=== PATIENT | female | born 1965 | race Caucasian/White ===

== ENCOUNTER 2017-01-26 08:45 | Emergency (ER) | payer MEDICAID, OTHER ==
[~2017-01-26] VITALS: Ht 160 cm; Wt 63.5 kg
[~2017-01-26 08:45] MED LIST: ALBU18; IBUPROFEN PRN
[2017-01-26 09:26] LABS: Urine RBC None Seen /hpf (0 - 4)
[2017-01-26 09:27] LABS: Urine Bilirubin Negative (Negative); Urine Blood Negative /uL (Negative); Urine Color Yellow (Yellow); Urine Glucose Normal (Normal); Urine Ketone TRACE (Negative); Urine Nitrite Negative (Negative); Urine Squamous Epithelial Cell FEW /hpf (<5); Urine Urobilinogen Normal (Negative)
[2017-01-26 09:35] LABS: Basophils # (auto) 0.1 uL; Basophils % (auto) 0.7 % (0.0-2.0); CONDITION Y; DEFINITIVE SEE PRINTOUT; Eosinophils # (auto) 0.1 uL; Eosinophils % (auto) 1.1 % (0.0-7.0); Hematocrit 51.4 % (36.0-46.0); Hemoglobin 17.5 g/dL (12.2-16.2); Lymphocytes # (auto) 2.4 uL; Lymphocytes % (auto) 24.7 % (10.0-50.0); Mean Corpuscular Volume 91.3 fL (80.0-100.0); Mean Platelet Volume 7.6 fL (7.4-10.4); Monocytes % (auto) 9.8 % (0.0-12.0); Neutrophils # (auto) 6.2 uL; Neutrophils % (auto) 63.7 % (37.0-80.0); Platelet Count (auto) 392 10^3/uL (140-450); Red Cell Distribution Width 19.5 % (11.6-16.0); White Blood Cell 9.7 10^3/uL (4.4-10.8)
[2017-01-26 10:02] LABS: Albumin 4.2 g/dL (3.4-5.0); Bilirubin, Total 0.5 mg/dL (0.2-1.0); Calcium 9.2 mg/dL (8.5-10.1)
[2017-01-26] MEDS ORDERED: LORazepam 0.5 MG TAB PO ONE (13:30)
[2017-01-26] MEDS ORDERED: POTASSIUM CHL 20 Meq TABLET PO ONE (13:30)
[2017-01-26] MEDS ORDERED: IPRATROPIUM BROM 0.5 MG/2.5ML INH SOL HHN ONE (14:30)
[2017-01-26] MEDS ORDERED: ALBUTEROL SULF 2.5 MG/0.5ML(0.5%) NEB SOLN HHN ONE (14:30)
[2017-01-26 15:30] VITALS: BP 141/80
== END 2017-01-26 16:17 | disposition home or self-care (01) ==
LOC: EDBD 08:45 → ER 08:45
DX: F41.9 Anxiety disorder, unspecified (principal); J44.9 Chronic obstructive pulmonary disease, unspecified; E87.6 Hypokalemia; I10 Essential (primary) hypertension; F17.210 Nicotine dependence, cigarettes, uncomplicated; F12.10 Cannabis abuse, uncomplicated; H40.9 Unspecified glaucoma
CPT/HCPCS: 36415; 71020; 80053; 80307; 81001; 84484; 85025; 93005; 94640

== ENCOUNTER 2017-09-22 20:39 | Inpatient (IN) | payer MEDICAID ==
[~2017-09-22] VITALS: Ht 162.6 cm; Wt 70.5 kg
[2017-09-22] MEDS ORDERED: IPRATROPIUM BROM 0.5 MG/2.5ML INH SOL NEB ONE (21:00)
[2017-09-22] MEDS ORDERED: methylPREDNISolone SOD SUCC 125 MG/2 ML VL IV ONE (21:00)
[2017-09-22] MEDS ORDERED: ALBUTEROL SULF 2.5 MG/0.5ML(0.5%) NEB SOLN NEB ONE (21:00)
[2017-09-22 21:18] LABS: Urine Bacteria NONE SEEN /hpf (None Seen); Urine Blood TRACE /uL (Negative); Urine Mucus FEW (None Seen); Urine Specific Gravity 1.006 (1.001-1.035); Urine WBC 1 /hpf (0 - 5)
[2017-09-22 21:19] LABS: Basophils # (auto) 0.1 uL; Basophils % (auto) 1.3 % (0.0-2.0); Eosinophils # (auto) 0 uL; Eosinophils % (auto) 0.1 % (0.0-7.0); Hematocrit 46.8 % (36.0-46.0); Hemoglobin 15.8 g/dL (12.2-16.2); Lymphocytes # (auto) 0.6 uL; Lymphocytes % (auto) 8.4 % (10.0-50.0); Mean Corpuscular Hemoglobin 33.4 pg (28.0-32.0); Mean Corpuscular Hgb Conc. 33.7 g/dL (32.0-36.0); Mean Corpuscular Volume 99.2 fL (80.0-100.0); Monocytes # (auto) 1.3 uL; Monocytes % (auto) 17.5 % (0.0-12.0); Neutrophils # (auto) 5.3 uL; Neutrophils % (auto) 72.7 % (37.0-80.0); Platelet Count (auto) 274 10^3/uL (140-450); Red Blood Cells 4.72 10^6/uL (4.0-5.20); Red Cell Distribution Width 14.2 % (11.8-14.3); White Blood Cell 7.2 10^3/uL (4.4-10.8)
[2017-09-22 21:38] LABS: Alanine Aminotransferase 15 U/L (13-56); Alkaline Phosphatase 84 U/L (45-117); Anion Gap 7 (5-15); Aspartate Aminotransferase 19 U/L (15-37); BUN/Creatinine Ratio 9.1; Bilirubin, Total 0.4 mg/dL (0.2-1.0); Blood Urea Nitrogen 6 mg/dL (7-18); Calcium 8.4 mg/dL (8.5-10.1); Carbon Dioxide 29 mmol/L (21-32); Chloride 100 mmol/L (98-107); GFR African American 121 mL/min; GFR Non-African American 100 mL/min; Glucose 122 mg/dL (74-106); Magnesium 2.1 mg/dL (1.6-2.6); Potassium 3.6 mmol/L (3.5-5.1); Sodium 136 mmol/L (136-145)
[2017-09-22] MEDS ORDERED: SODIUM CHLORIDE 0.9% 1,000 ML IV ONE (21:45)
[2017-09-22] MEDS ORDERED: DOXYCYCLINE HYC 100MG/250ML 250 ML IV ONE ×2 (22:30)
[2017-09-23] MEDS ORDERED: NITROGLYCERIN 0.4 MG SL TAB SL PRN (00:30)
[2017-09-23] MEDS ORDERED: ONDANSETRON HCL 4 MG/2 ML VIAL IV PRN (00:30)
[2017-09-23] MEDS ORDERED: ACETAMINOPHEN 325 MG TAB PO PRN (00:30)
[2017-09-23] MEDS ORDERED: MORPHINE SULFATE 4 MG/ML SYR/VIAL IV PRN (00:30)
[2017-09-23] MEDS ORDERED: DOCUSATE SOD 100 MG CAP PO PRN (00:30)
[2017-09-23 01:51] VITALS: BP 118/76
[2017-09-23] MEDS: GABAPENTIN 300 MG CAP PO SCH ×3 (06:00→22:37)
[2017-09-23] MEDS: LEVOFLOXACIN 500MG 100 ML IV SCH (09:17)
[2017-09-23] MEDS: methylPREDNISolone SOD SUCC 125 MG/2 ML VL IV SCH ×2 (09:18→22:37)
[2017-09-23] MEDS: ENOXAPARIN SOD 40 MG/0.4 ML SYRINGE SC SCH (09:20)
[2017-09-23] MEDS: FAMOTIDINE 20 MG TAB PO SCH ×2 (09:20→22:37)
[2017-09-23] MEDS: amLODIPine BESYLATE 5 MG TAB PO SCH (09:20)
[2017-09-23] MEDS: guaiFENesin-DM 100/10mg/5ml SYR PO PRN (13:21)
[2017-09-23] MEDS: IPRATROPIUM BROM 0.5 MG/2.5ML INH SOL NEB PRN ×2 (13:30→19:51)
[2017-09-23] MEDS: ALBUTEROL SULF 2.5 MG/0.5ML(0.5%) NEB SOLN NEB PRN ×2 (13:30→19:51)
[2017-09-23] MEDS ORDERED: HYDR50TA15 PO (15:04)
[2017-09-23] MEDS ORDERED: PERCOT PO (15:04)
[2017-09-23] MEDS ORDERED: BACL10TA PO (15:04)
[2017-09-23] MEDS ORDERED: GABA-339 PO (15:04)
[2017-09-23] MEDS ORDERED: LORA-622 PO (15:04)
[2017-09-23] MEDS ORDERED: AMLO5TAB2 PO (15:04)
[2017-09-23] MEDS ORDERED: TIMO0.5S3 EACHEYE (15:04)
[2017-09-23 15:33] VITALS: BP 111/69
[2017-09-23] MEDS: BUDESONIDE (INHALATION) 0.5 MG/2 ML NEB NEB SCH (19:51)
[2017-09-23 22:00] VITALS: BP 105/68
[2017-09-24] MEDS: guaiFENesin-DM 100/10mg/5ml SYR PO PRN ×5 (02:57→22:32)
[2017-09-24] MEDS: HYDROcodone-ACET 7.5/325MG TAB PO PRN ×3 (03:36→17:30)
[2017-09-24 05:00] VITALS: BP 129/77
[2017-09-24 05:37] LABS: Basophils # (auto) 0 uL; Basophils % (auto) 0.1 % (0.0-2.0); Eosinophils # (auto) 0 uL; Hematocrit 42.7 % (36.0-46.0); Hemoglobin 14.5 g/dL (12.2-16.2); Lymphocytes # (auto) 0.5 uL; Lymphocytes % (auto) 6.6 % (10.0-50.0); Mean Corpuscular Hemoglobin 33.9 pg (28.0-32.0); Mean Corpuscular Volume 99.8 fL (80.0-100.0); Monocytes # (auto) 0.6 uL; Monocytes % (auto) 6.8 % (0.0-12.0); Neutrophils % (auto) 86.5 % (37.0-80.0); Platelet Count (auto) 287 10^3/uL (140-450); Red Blood Cells 4.28 10^6/uL (4.0-5.20); Red Cell Distribution Width 14.4 % (11.8-14.3); White Blood Cell 8.1 10^3/uL (4.4-10.8)
[2017-09-24 05:54] LABS: BUN/Creatinine Ratio 22.2; Calcium 8.6 mg/dL (8.5-10.1); Potassium 3.7 mmol/L (3.5-5.1)
[2017-09-24 05:57] LABS: Albumin 2.7 g/dL (3.4-5.0); Bilirubin, Total 0.4 mg/dL (0.2-1.0); Total Protein 6.3 g/dL (6.4-8.2)
[2017-09-24] MEDS: GABAPENTIN 300 MG CAP PO SCH ×3 (06:51→21:43)
[2017-09-24 08:00] VITALS: BP 129/77
[2017-09-24] MEDS: FAMOTIDINE 20 MG TAB PO SCH ×2 (09:07→21:43)
[2017-09-24] MEDS: amLODIPine BESYLATE 5 MG TAB PO SCH (09:07)
[2017-09-24] MEDS: ENOXAPARIN SOD 40 MG/0.4 ML SYRINGE SC SCH (09:07)
[2017-09-24] MEDS: methylPREDNISolone SOD SUCC 125 MG/2 ML VL IV SCH ×2 (09:08→21:42)
[2017-09-24] MEDS: LEVOFLOXACIN 500MG 100 ML IV SCH (09:08)
[2017-09-24] MEDS: BUDESONIDE (INHALATION) 0.5 MG/2 ML NEB NEB SCH ×2 (10:00→22:35)
[2017-09-24 12:00] VITALS: BP 158/90
[2017-09-24] MEDS: ALBUTEROL SULF 2.5 MG/0.5ML(0.5%) NEB SOLN NEB SCH ×2 (14:50→19:41)
[2017-09-24] MEDS: IPRATROPIUM BROM 0.5 MG/2.5ML INH SOL NEB PRN ×2 (14:50→22:36)
[2017-09-24 16:00] VITALS: BP 153/74
[2017-09-24 21:30] VITALS: BP 133/78
[2017-09-25 04:51] VITALS: BP 147/90
[2017-09-25] MEDS: guaiFENesin-DM 100/10mg/5ml SYR PO PRN ×2 (05:58→22:32)
[2017-09-25] MEDS: HYDROcodone-ACET 7.5/325MG TAB PO PRN ×3 (05:58→20:08)
[2017-09-25] MEDS: GABAPENTIN 300 MG CAP PO SCH ×3 (05:58→22:37)
[2017-09-25] MEDS: ALBUTEROL SULF 2.5 MG/0.5ML(0.5%) NEB SOLN NEB SCH ×4 (06:26→18:00)
[2017-09-25] MEDS: BUDESONIDE (INHALATION) 0.5 MG/2 ML NEB NEB SCH ×2 (06:26→18:57)
[2017-09-25 08:00] VITALS: BP 134/79
[2017-09-25] MEDS: ENOXAPARIN SOD 40 MG/0.4 ML SYRINGE SC SCH ×2 (09:48→09:52)
[2017-09-25] MEDS: FAMOTIDINE 20 MG TAB PO SCH ×2 (09:48→22:37)
[2017-09-25] MEDS: methylPREDNISolone SOD SUCC 125 MG/2 ML VL IV SCH ×2 (09:48→22:37)
[2017-09-25] MEDS: amLODIPine BESYLATE 5 MG TAB PO SCH (09:49)
[2017-09-25] MEDS: LEVOFLOXACIN 500MG 100 ML IV SCH (09:49)
[2017-09-25 12:00] VITALS: BP 140/80
[2017-09-25] MEDS: IPRATROPIUM BROM 0.5 MG/2.5ML INH SOL NEB SCH (16:00)
[2017-09-25 16:51] VITALS: BP 149/88
[2017-09-25 21:30] VITALS: BP 150/82
[2017-09-26] VITALS (8 sets, daily range): BP systolic 140–150; BP diastolic 82–90
[2017-09-26] MEDS: ALBUTEROL SULF 2.5 MG/0.5ML(0.5%) NEB SOLN NEB SCH ×4 (06:00→20:12)
[2017-09-26] MEDS: IPRATROPIUM BROM 0.5 MG/2.5ML INH SOL NEB SCH ×4 (06:05→20:12)
[2017-09-26] MEDS: GABAPENTIN 300 MG CAP PO SCH ×3 (06:55→21:03)
[2017-09-26] MEDS: BUDESONIDE (INHALATION) 0.5 MG/2 ML NEB NEB SCH (09:57)
[2017-09-26] MEDS ORDERED: LEVOFLOXACIN 500 MG TAB PO SCH (10:00)
[2017-09-26] MEDS: ENOXAPARIN SOD 40 MG/0.4 ML SYRINGE SC SCH (10:00)
[2017-09-26] MEDS: guaiFENesin-DM 100/10mg/5ml SYR PO PRN (10:14)
[2017-09-26] MEDS: FAMOTIDINE 20 MG TAB PO SCH ×2 (10:14→21:02)
[2017-09-26] MEDS: methylPREDNISolone SOD SUCC 125 MG/2 ML VL IV SCH ×2 (10:14→17:39)
[2017-09-26] MEDS: HYDROcodone-ACET 7.5/325MG TAB PO PRN ×2 (10:14→19:55)
[2017-09-26] MEDS ORDERED: LEVOFLOXACIN 500MG 100 ML IV SCH (10:15)
[2017-09-26] MEDS: amLODIPine BESYLATE 5 MG TAB PO SCH (10:15)
[2017-09-26] MEDS: TEMAZEPAM 15 MG CAP PO PRN (21:02)
[2017-09-27] MEDS: methylPREDNISolone SOD SUCC 125 MG/2 ML VL IV SCH ×3 (02:30→18:05)
[2017-09-27 05:00] VITALS: BP 142/81
[2017-09-27] MEDS: GABAPENTIN 300 MG CAP PO SCH ×3 (06:41→21:19)
[2017-09-27] MEDS: BUDESONIDE (INHALATION) 0.5 MG/2 ML NEB NEB SCH ×2 (06:57→18:28)
[2017-09-27] MEDS: ALBUTEROL SULF 2.5 MG/0.5ML(0.5%) NEB SOLN NEB SCH ×4 (06:57→18:28)
[2017-09-27] MEDS: IPRATROPIUM BROM 0.5 MG/2.5ML INH SOL NEB SCH ×4 (06:57→18:28)
[2017-09-27 06:59] LABS: Basophils # (auto) 0 uL; Basophils % (auto) 0.1 % (0.0-2.0); Eosinophils # (auto) 0 uL; Hemoglobin 15.8 g/dL (12.2-16.2); Lymphocytes % (auto) 10.1 % (10.0-50.0); Mean Corpuscular Hemoglobin 33.1 pg (28.0-32.0); Mean Corpuscular Hgb Conc. 33.6 g/dL (32.0-36.0); Mean Corpuscular Volume 98.7 fL (80.0-100.0); Monocytes # (auto) 0.6 uL; Neutrophils # (auto) 8.5 uL; Neutrophils % (auto) 83.8 % (37.0-80.0); Nucleated Red Blood Cells % 0.3 %; Platelet Count (auto) 360 10^3/uL (140-450); Red Blood Cells 4.76 10^6/uL (4.0-5.20); Red Cell Distribution Width 14.5 % (11.8-14.3); White Blood Cell 10.2 10^3/uL (4.4-10.8)
[2017-09-27 07:14] LABS: Potassium 4.1 mmol/L (3.5-5.1)
[2017-09-27 07:20] LABS: BUN/Creatinine Ratio 18.2; Calcium 8.6 mg/dL (8.5-10.1)
[2017-09-27 09:00] VITALS: BP 155/87
[2017-09-27] MEDS: FAMOTIDINE 20 MG TAB PO SCH ×2 (09:02→21:19)
[2017-09-27] MEDS: LEVOFLOXACIN 500 MG TAB PO SCH (09:02)
[2017-09-27] MEDS: HYDROcodone-ACET 7.5/325MG TAB PO PRN ×2 (09:02→18:06)
[2017-09-27] MEDS: ENOXAPARIN SOD 40 MG/0.4 ML SYRINGE SC SCH (09:03)
[2017-09-27] MEDS: amLODIPine BESYLATE 5 MG TAB PO SCH (09:03)
[2017-09-27] MEDS: guaiFENesin-DM 100/10mg/5ml SYR PO PRN (09:03)
[2017-09-27 13:03] VITALS: BP 142/83
[2017-09-27 17:00] VITALS: BP 137/73
[2017-09-27 20:00] VITALS: BP 125/77
[2017-09-27] MEDS: TEMAZEPAM 15 MG CAP PO PRN (21:19)
[2017-09-27 22:00] VITALS: BP 125/77
[2017-09-28] MEDS: methylPREDNISolone SOD SUCC 125 MG/2 ML VL IV SCH ×2 (02:46→08:18)
[2017-09-28] MEDS: HYDROcodone-ACET 7.5/325MG TAB PO PRN ×2 (05:34→08:19)
[2017-09-28] MEDS: GABAPENTIN 300 MG CAP PO SCH (05:34)
[2017-09-28 05:55] VITALS: BP 151/90
[2017-09-28] MEDS: ALBUTEROL SULF 2.5 MG/0.5ML(0.5%) NEB SOLN NEB SCH ×2 (06:11→09:37)
[2017-09-28] MEDS: IPRATROPIUM BROM 0.5 MG/2.5ML INH SOL NEB SCH ×2 (06:11→09:36)
[2017-09-28] MEDS: LEVOFLOXACIN 500 MG TAB PO SCH (08:18)
[2017-09-28] MEDS: FAMOTIDINE 20 MG TAB PO SCH (08:18)
[2017-09-28] MEDS: amLODIPine BESYLATE 5 MG TAB PO SCH (08:19)
[2017-09-28] MEDS: ENOXAPARIN SOD 40 MG/0.4 ML SYRINGE SC SCH (08:20)
[2017-09-28 09:07] VITALS: BP 127/77
[2017-09-28] MEDS: BUDESONIDE (INHALATION) 0.5 MG/2 ML NEB NEB SCH (09:37)
== END 2017-09-28 12:05 | disposition home or self-care (01) | DRG 133 ==
LOC: EDBD 20:39 → ER 20:51 → TELE 20:52 → TELE-WESTW 09-23 14:19 → WEST WING 09-26 10:19
PROVIDERS: ADMIT Nurse Practitioner; ATTEND Internal Medicine
PROC: 5A09357 Assistance with Respiratory Ventilation, Less than 24 Consecutive Hours, Continuous Positive Airway Pressure (ICD-10-PCS; principal; 2017-09-22)
PROC: 5A09357 Assistance with Respiratory Ventilation, Less than 24 Consecutive Hours, Continuous Positive Airway Pressure (ICD-10-PCS; 2017-09-23)
DX: J96.21 Acute and chronic respiratory failure with hypoxia (principal); J18.9 Pneumonia, unspecified organism; Z99.81 Dependence on supplemental oxygen; J44.0 Chronic obstructive pulmonary disease with (acute) lower respiratory infection; E44.1 Mild protein-calorie malnutrition; J44.1 Chronic obstructive pulmonary disease with (acute) exacerbation; J20.9 Acute bronchitis, unspecified; I10 Essential (primary) hypertension; E74.39 Other disorders of intestinal carbohydrate absorption; F12.90 Cannabis use, unspecified, uncomplicated; F17.210 Nicotine dependence, cigarettes, uncomplicated; J96.22 Acute and chronic respiratory failure with hypercapnia; T38.0X5A Adverse effect of glucocorticoids and synthetic analogues, initial encounter; F32.9 Major depressive disorder, single episode, unspecified; F41.9 Anxiety disorder, unspecified; R73.9 Hyperglycemia, unspecified; Z88.0 Allergy status to penicillin; Z82.49 Family history of ischemic heart disease and other diseases of the circulatory system; Z88.5 Allergy status to narcotic agent
CPT/HCPCS: 36415; 36600; 71045; 71046; 80048; 80053; 81001; 82805; 82962; 83036; 83605; 83735; 83880; 84484; 85025; 87040; 87070; 87205; 87804; 93005; 94640; 94644; 94660; 96361; 96365; 96367; 99291; J1956; J3490

== ENCOUNTER 2020-03-26 12:22 | Inpatient (IN) | payer MEDICAID ==
[~2020-03-26] VITALS: Ht 162.6 cm; Wt 62.0 kg
[2020-03-26] VITALS (22 sets, daily range): BP systolic 92–149; BP diastolic 50–97
[~2020-03-26 12:22] MED LIST changes: +AMLO5TAB15 PO; +BACL10TA PO; +DOXY-338 PO; +GLAT1INJ SC; +HYDR10TA26 PO; -IBUPROFEN PRN; +LACO100T PO; +LORA-622 PO; +OXCA600T40 OR; +PRED-559 PO; +TIMO0.5S66 EACHEYE
[2020-03-26] MEDS ORDERED: NALOXONE HCL 1MG/ML 2ML SYRINGE ONE (12:54)
[2020-03-26 12:58] LABS: Basophils # (auto) 0.1 10 ^3/uL (0-0.2); Basophils % (auto) 1.2 % (0.0-2.0); Eosinophils # (auto) 0.1 10 ^3/uL (0-0.8); Eosinophils % (auto) 2.5 % (0.0-7.0); Hematocrit 47.9 % (36.0-46.0); Hemoglobin 15.8 g/dL (12.2-16.2); Lymphocytes # (auto) 1.2 10 ^3/uL (0.4-5.4); Lymphocytes % (auto) 22.8 % (10.0-50.0); Mean Corpuscular Hemoglobin 30.7 pg (28.0-32.0); Mean Corpuscular Volume 93.2 fL (80.0-100.0); Monocytes # (auto) 0.8 10 ^3/uL (0-1.3); Monocytes % (auto) 14.7 % (0.0-12.0); Neutrophils # (auto) 3.2 10 ^3/uL (1.6-8.6); Neutrophils % (auto) 58.8 % (37.0-80.0); Platelet Count (auto) 333 10^3/uL (140-450); Red Blood Cells 5.14 10^6/uL (4.0-5.20); Red Cell Distribution Width 16.5 % (11.8-14.3); White Blood Cell 5.4 10^3/uL (4.4-10.8)
[2020-03-26] MEDS ORDERED: NALOXONE HCL 0.4 MG/ML VIAL IV ONE (13:00)
[2020-03-26 13:09] LABS: Alanine Aminotransferase 27 U/L (13-56); Albumin 3.2 g/dL (3.4-5.0); Anion Gap 5 (5-15); Blood Alcohol < 3.0 mg/dL (0-5); Blood Urea Nitrogen 9 mg/dL (7-18); Calcium 8.7 mg/dL (8.5-10.1); Carbon Dioxide 30 mmol/L (21-32); Chloride 94 mmol/L (98-107); Glucose 97 mg/dL (74-106); Potassium 3.7 mmol/L (3.5-5.1); Sodium 129 mmol/L (136-145)
[2020-03-26 13:10] LABS: Acetaminophen < 2.0 ug/mL (10-30); Salicylate 8.9 mg/dL (2.8-20.0)
[2020-03-26 13:12] LABS: Alkaline Phosphatase 57 U/L (45-117); Aspartate Aminotransferase 37 U/L (15-37); BUN/Creatinine Ratio 16.4; Bilirubin, Total 0.5 mg/dL (0.2-1.0); GFR African American 148 mL/min; GFR Non-African American 122 mL/min
[2020-03-26] MEDS ORDERED: MIDAZOLAM HCL 5 MG/ML-1ML VIAL IV ONE (13:15)
[2020-03-26] MEDS ORDERED: MIDAZOLAM DRIP 50 mg/50mL 50 ML IV SCH (13:28)
[2020-03-26] MEDS ORDERED: MIDAZOLAM DRIP 50 mg/50mL 50 ML IV ONE (13:30)
[2020-03-26] MEDS ORDERED: BACL20TA PO (13:35)
[2020-03-26] MEDS ORDERED: GABA-339 PO (13:35)
[2020-03-26] MEDS ORDERED: MULT-927 PO (13:35)
[2020-03-26] MEDS ORDERED: fentaNYL Drip 2500mCg/250mlNS 250 ML IV SCH (13:35)
[2020-03-26] MEDS ORDERED: fentaNYL Drip 2500mCg/250mlNS 250 ML IV ONE (13:37)
[2020-03-26] MEDS ORDERED: ALBUAER3 IN (13:37)
[2020-03-26] MEDS ORDERED: ASPI-498 PO ×2 (13:37→13:59)
[2020-03-26] MEDS ORDERED: LISI40TA11 PO (13:38)
[2020-03-26] MEDS ORDERED: MIRT1TAB38 PO (13:38)
[2020-03-26] MEDS ORDERED: MONT10TA34 PO (13:40)
[2020-03-26] MEDS ORDERED: ZINC50TA7 PO (13:40)
[2020-03-26] MEDS ORDERED: ATOR40TA52 PO (13:41)
[2020-03-26] MEDS ORDERED: CHOL1000 PO (13:41)
[2020-03-26] MEDS ORDERED: ASCO100076 PO (13:42)
[2020-03-26] MEDS: MIDAZOLAM DRIP 50 mg/50mL 50 ML IV SCH (13:45)
[2020-03-26] MEDS ORDERED: BRIV1TAB4 PO (13:47)
[2020-03-26] MEDS ORDERED: LACO150T PO (13:47)
[2020-03-26] MEDS ORDERED: HYDR25TA4 PO (13:47)
[2020-03-26] MEDS ORDERED: IBUP800T24 PO (13:50)
[2020-03-26] MEDS ORDERED: HYDR-4298 PO (13:51)
[2020-03-26] MEDS ORDERED: ACYC-166 PO (13:53)
[2020-03-26] MEDS ORDERED: BECL40AE11 IN (13:56)
[2020-03-26] MEDS ORDERED: NOREPINEPHRINE 8 MG/250ML KIT 250 ML IV ONE (14:04)
[2020-03-26] MEDS: fentaNYL Drip 2500mCg/250mlNS 250 ML IV SCH (14:12)
[2020-03-26] MEDS: NOREPINEPHRINE 8 MG/250ML KIT 250 ML IV SCH (14:15)
[2020-03-26] MEDS ORDERED: IPRATROPIUM BROM 0.5 MG/2.5ML INH SOL ONE (14:37)
[2020-03-26] MEDS ORDERED: ALBUTEROL SULF 2.5 MG/0.5ML(0.5%) NEB SOLN ONE (14:37)
--- NOTE | 2020-03-26 15:18 | NUR ---
RT Transport Note: Patient transported to CT with ELIZABETH Parsons and radiology team. Patient transported on front desk monitor with alarms set and audible, ambu-bag/mask connected to 02 tank. Patient returned to room with no adverse reaction noted. Transport completed without incident.
[2020-03-26 15:19] LABS: Magnesium 2.2 mg/dL (1.6-2.6)
[2020-03-26] MEDS ORDERED: ALBUTEROL SULF 2.5 MG/0.5ML(0.5%) NEB SOLN NEB ONE (15:45)
[2020-03-26] MEDS ORDERED: IPRATROPIUM BROM 0.5 MG/2.5ML INH SOL NEB ONE (15:45)
[2020-03-26] MEDS ORDERED: MORPHINE SULF INJ 2 MG/ML SYRINGE 1ML IV PRN (17:15)
[2020-03-26] MEDS ORDERED: NITROGLYCERIN 0.4 MG SL TAB SL PRN (17:15)
[2020-03-26] MEDS ORDERED: D5W/LACTATED RINGERS 1,000 ML IV ONE (17:15)
[2020-03-26] MEDS ORDERED: ONDANSETRON HCL 4 MG/2 ML VIAL IV PRN (17:15)
[2020-03-26] MEDS ORDERED: LIDOCAINE 1% (LOCAL ANESTH.) PF 5ml SDV ID ONE (18:45)
--- NOTE | 2020-03-26 18:59 | NUR ---
PICC line placement Patients family educated on need for PICC line placement. All risks and benefits explained and all questions and concerns addressed prior to procedure. Noted past medical history and allergies with no contraindications. INR and Plt counts within acceptable range. 5 fr PICC line inserted via right brachial vein using [employer] US and Tip Location System. Sterile technique with maximum barrier precautions utilized. Blood return obtained from each of three lumens and each flushed easily with NS using proper technique. PICC secured with Stat-lock; biodisc and occlusive dressing applied. Stat portable chest x-ray obtained for PICC tip placement. *Baseline Arm Circumference 27cm, internal length 32cm, external length 0cm PICC lot #[id number]
--- NOTE | 2020-03-26 19:10 | NUR ---
OK to use PICC line Xray completed. OK to use PICC line . PRIMARY RN NOTIFIED
--- NOTE | 2020-03-26 19:30 | NUR ---
REPORT RECEIVED, ASSUMED CARE.
--- NOTE | 2020-03-26 19:50 | NUR ---
ONLINE RADIOLOGY (MICHAEL) CALLED ET AND PICC LINE IN PLACE. NGT NEEDS TO BE ADVANCED.
--- NOTE | 2020-03-26 20:05 | NUR ---
ADVANCED NGT PER CXR REPORT.
[2020-03-26 20:35] LABS: INR 1.05 (0.9-1.15); Partial Thromboplastin Time 31.9 sec (23.0-31.2)
--- NOTE | 2020-03-26 21:50 | NUR ---
MARIPOSA CALLED GAVE UPDATE, EXPLAINED POC AND ADDRESSED ALL QUESTIONS AND CONCERNS. EXPLAINED HAS HOME MEDICATIONS THAT NEED TO GO BACK HOME. UNABLE TO COME IN TONIGHT. RESPONDED WITH UNDERSTANDING AND COMPLIANCE, WILL PASS ON IN REPORT.
--- NOTE | 2020-03-26 22:05 | NUR ---
PT AWOKEN THRASHING GRABBING AT LINES AND TUBES UNABLE TO REORIENT PT, HAD TO INCREASE SEDATION.
[2020-03-26] MEDS: FAMOTIDINE (10MG/ML) 2ML VL IV SCH (22:31)
[2020-03-26] MEDS: SODIUM CHLOR 0.9% PF (SALINE LOCK) 10ML VIAL/SYR IV SCH (22:31)
[2020-03-27] VITALS (96 sets, daily range): BP systolic 87–142; BP diastolic 46–80
[2020-03-27] MEDS: MIDAZOLAM DRIP 50 mg/50mL 50 ML IV SCH ×4 (02:00→23:25)
--- NOTE | 2020-03-27 02:00 | NUR ---
PT AWOKEN THRASHING GRABBING AT LINES AND TUBES UNABLE TO REORIENT PT, HAD TO RESTART VERSED GTT SEDATION FOR PT SAFETY.
--- NOTE | 2020-03-27 06:15 | NUR ---
PT AWOKEN THRASHING GRABBING AT LINES AND TUBES UNABLE TO REORIENT PT.
--- NOTE | 2020-03-27 06:25 | NUR ---
RT NOTE: PT. TRANSFERRED TO ICU 102 WITH ELIZABETH ASHLEY AND BIOMASS TECHNICIAN WITHOUT INCIDENT. PT. ON [employer] BAND TEACHER AND BAGGED WITH 15L O2. PT. PLACED BACK ON VENT # [phone], WITH ORDERED SETTINGS.
--- NOTE | 2020-03-27 06:30 | NUR ---
PATIENT ARRIVED VIA GURNEY WITH X1 RN, X1 ADAPTED PHYSICAL EDUCATION AIDE, AND ER RT; PLACED PT. ON BEDSIDE MONITOR; SEE INTERVENTIONS FOR ASSESSMENT; VS STABLE AT THIS TIME- WITH PATIENT ON LEVOPHED GTT AT 4MCG/MIN; PT. ON SEDATION/INTUBATED/VENTED; WILL CONT. TO MONITOR.
--- NOTE | 2020-03-27 07:55 | NUR ---
Dr. Hager at the bedside, seen and eval patient at this time.
[2020-03-27 09:44] LABS: Basophils # (auto) 0.1 10 ^3/uL (0-0.2); Basophils % (auto) 0.7 % (0.0-2.0); Eosinophils # (auto) 0 10 ^3/uL (0-0.8); Eosinophils % (auto) 0.5 % (0.0-7.0); Hematocrit 44.2 % (36.0-46.0); Hemoglobin 14.5 g/dL (12.2-16.2); Lymphocytes # (auto) 1.3 10 ^3/uL (0.4-5.4); Lymphocytes % (auto) 13.5 % (10.0-50.0); Mean Corpuscular Hemoglobin 30.8 pg (28.0-32.0); Mean Corpuscular Hgb Conc. 32.8 g/dL (32.0-36.0); Mean Corpuscular Volume 93.8 fL (80.0-100.0); Monocytes # (auto) 1.3 10 ^3/uL (0-1.3); Monocytes % (auto) 14.2 % (0.0-12.0); Neutrophils # (auto) 6.6 10 ^3/uL (1.6-8.6); Neutrophils % (auto) 71.1 % (37.0-80.0); Platelet Count (auto) 310 10^3/uL (140-450); Red Blood Cells 4.71 10^6/uL (4.0-5.20); White Blood Cell 9.3 10^3/uL (4.4-10.8)
[2020-03-27 09:48] LABS: Urine Bacteria NONE SEEN /hpf (None Seen); Urine Blood TRACE /uL (Negative); Urine Mucus FEW (None Seen); Urine Specific Gravity 1.011 (1.001-1.035); Urine WBC 3 /hpf (0 - 5)
--- NOTE | 2020-03-27 09:50 | NUR ---
Received a call from Dr. Schmitz to increase Peep to 8 as ordered, paged RT made aware. RT at the bedside.
[2020-03-27 09:57] LABS: Albumin 2.7 g/dL (3.4-5.0); BUN/Creatinine Ratio 11.8; Calcium 7.6 mg/dL (8.5-10.1); Potassium 3.1 mmol/L (3.5-5.1)
[2020-03-27 09:59] LABS: Alcohol, Urine < 3.0 mg/dL (0-10); Amphetamine Screen, Urine NEGATIVE (NEGATIVE); Barbiturate Scree,Urine NEGATIVE (NEGATIVE); Benzodiazephine Screen, Urine POSITIVE (NEGATIVE); Cannabinoid Screen, Urine NEGATIVE (NEGATIVE); Cocaine Screen, Urine NEGATIVE (NEGATIVE); Opiate Scree,Urine NEGATIVE (NEGATIVE); Phencyclidine Screen, Urine NEGATIVE (NEGATIVE)
[2020-03-27 10:00] LABS: Bilirubin, Total 0.5 mg/dL (0.2-1.0); Total Protein 5.4 g/dL (6.4-8.2)
[2020-03-27] MEDS ORDERED: VIMPAT 150 MG IV SCH (10:00)
[2020-03-27] MEDS: BRIVIACT 50 MG PO SCH ×2 (10:00→21:40)
[2020-03-27 10:09] LABS: INR 1.1 (0.9-1.15); Partial Thromboplastin Time 32.2 sec (23.0-31.2)
[2020-03-27] MEDS: cefTRIAXone 1GM/50ML D5W 50 ML IV SCH (10:40)
[2020-03-27] MEDS: FAMOTIDINE (10MG/ML) 2ML VL IV SCH ×2 (10:40→21:40)
[2020-03-27] MEDS: SODIUM CHLOR 0.9% PF (SALINE LOCK) 10ML VIAL/SYR IV SCH ×2 (10:40→21:40)
[2020-03-27] MEDS: fentaNYL Drip 2500mCg/250mlNS 250 ML IV SCH ×3 (10:45→23:41)
[2020-03-27] MEDS ORDERED: SODIUM CHL 0.9% IV SCH (11:00)
[2020-03-27] MEDS ORDERED: LACOSAMIDE IV SCH (11:00)
[2020-03-27] MEDS: ALBUTEROL SULF 2.5 MG/0.5ML(0.5%) NEB SOLN NEB SCH ×4 (11:03→21:58)
[2020-03-27] MEDS: IPRATROPIUM BROM 0.5 MG/2.5ML INH SOL NEB SCH ×4 (11:04→21:58)
--- NOTE | 2020-03-27 11:45 | NUR ---
Ice pack provided for increased BT.
[2020-03-27] MEDS: NOREPINEPHRINE 8 MG/250ML KIT 250 ML IV SCH (12:45)
--- NOTE | 2020-03-27 12:45 | NUR ---
Stopped Levophed at this time.
--- NOTE | 2020-03-27 14:53 | NUR ---
EEG COMPLETED AT 11:45.
[2020-03-27] MEDS: ACETAMINOPHEN 650 mg PER 20 mL UD GT PRN (14:57)
--- NOTE | 2020-03-27 15:00 | NUR ---
Tylenol given for BT 100.6 F. NG tube checked for the residual before giving medication, got bile 80 ml and some air left. No N/V noted.
--- NOTE | 2020-03-27 16:30 | NUR ---
BT 100.6 F, on cooling blanket. Patient awake and agitation, suction provided, mouth care provided, still not cooperate with treatment. Increased sedation as ordered. Will continue to monitor and care, notify MD made aware.
--- NOTE | 2020-03-27 17:10 | NUR ---
Dr. Avila at the bedside, seen and examined patient at this time, informed MD about the temperature 100.2-100.6 F, and increased sedation due to agitation and MD agreed, suction provided and got large amount of secretion with creamy color. MD will order ATB, will continue to monitor and care.
--- NOTE | 2020-03-27 20:15 | NUR ---
OPENING NOTE: INTUBATED AND SEDATED. GROSSLY UNRESPONSIVE BUT MUSCLES VERY TENSE AND RESISTIVE TO CARE. PUPILS UNEQUAL L > R, NOTED WITH SCLERAL IRREGULARITIES/DEFORMITIES TO RIGHT. HYPOGAG/COUGH. SINUS TACH, HR 100s. SBP 120-140s. 7.5 ETT 24 AT THE LIP. LS WITH WHEEZES THROUGHOUT. EVEN AND UNLABORED BREATHING. SMALL AMOUNT OF CREAMY ETT SECRETIONS. ABD SOFT. HYPOACTIVE BS. NGT + AIR BOLUS, PLACED TO LIS, LIGHT BILIOUS. UNKNOWN LBM. RODRIGUEZ PATENT AND INTACT, DRAINING LIGHT FLACO URINE. SKIN GROSSLY INTACT, SEE SKIN AND WOUND FLOWSHEET FOR ASSESSMENT. RIGHT UPPER ARM PICC, CDI, AND PATENT WITH BLOOD RETURN. REINFORCED POC. MAINTAINED PATIENT SAFETY: BED LOCKED AND IN THE LOWEST POSITION, FREQUENT VISUAL CHECKS. WILL CONT CARE
--- NOTE | 2020-03-27 21:00 | NUR ---
SEDATION VACATION: UNABLE TO COMPLETE SEDATION VACATION AT THIS TIME. NOTED TO DESATURATE WITH STIMULATION. WILL REASSESS NECESSITY OF SEDATION AND TITRATE APPROPRIATE Addendum: 03/27/20 at 2320 by Jasmine Kwong RN RN Amended: Links added.
--- NOTE | 2020-03-27 21:00 | NUR ---
TEMP REMAINS ELEVATED > 100F DESPITE COOLING BLANKET - PLACED ICE PACKS IN BILATERAL AXILLA, AND BEHIND NECL
[2020-03-28] VITALS (102 sets, daily range): BP systolic 79–139; BP diastolic 41–78
--- NOTE | 2020-03-28 | NUR ---
TEMP BACK DOWN TO NORMAL
[2020-03-28] MEDS: IPRATROPIUM BROM 0.5 MG/2.5ML INH SOL NEB SCH ×6 (01:49→22:02)
[2020-03-28] MEDS: ALBUTEROL SULF 2.5 MG/0.5ML(0.5%) NEB SOLN NEB SCH ×6 (01:49→22:02)
--- NOTE | 2020-03-28 02:00 | NUR ---
BED BATH WITH CHG WIPES, CITLALLI CARE, RODRIGUEZ CARE, ORAL CARE, HAIR CARE, AND PARTIAL LINEN CHANGE COMPLETED
[2020-03-28] MEDS: MIDAZOLAM DRIP 50 mg/50mL 50 ML IV SCH ×5 (02:43→23:46)
--- NOTE | 2020-03-28 04:14 | NUR ---
Respiratory note: TITRATED FIO2 TO 55%, TOLERATING WELL.
--- NOTE | 2020-03-28 04:31 | NUR ---
BP IN 80s, MAP 60 - RESTARTED LEVOPHED GTT
[2020-03-28 04:48] LABS: Basophils # (auto) 0 10 ^3/uL (0-0.2); Basophils % (auto) 0.2 % (0.0-2.0); Eosinophils # (auto) 0 10 ^3/uL (0-0.8); Eosinophils % (auto) 0.2 % (0.0-7.0); Hematocrit 46.3 % (36.0-46.0); Hemoglobin 15.1 g/dL (12.2-16.2); Lymphocytes # (auto) 0.8 10 ^3/uL (0.4-5.4); Mean Corpuscular Hemoglobin 30.8 pg (28.0-32.0); Mean Corpuscular Hgb Conc. 32.7 g/dL (32.0-36.0); Mean Corpuscular Volume 94.2 fL (80.0-100.0); Monocytes # (auto) 0.7 10 ^3/uL (0-1.3); Neutrophils # (auto) 9.8 10 ^3/uL (1.6-8.6); Neutrophils % (auto) 86.6 % (37.0-80.0); Platelet Count (auto) 214 10^3/uL (140-450); Red Blood Cells 4.91 10^6/uL (4.0-5.20); Red Cell Distribution Width 16.6 % (11.8-14.3); White Blood Cell 11.3 10^3/uL (4.4-10.8)
[2020-03-28 05:04] LABS: Potassium 3.5 mmol/L (3.5-5.1)
[2020-03-28 05:12] LABS: Albumin 2.7 g/dL (3.4-5.0); BUN/Creatinine Ratio 37.5; Bilirubin, Total 0.4 mg/dL (0.2-1.0); Total Protein 5.5 g/dL (6.4-8.2)
--- NOTE | 2020-03-28 06:52 | NUR ---
PATIENT'S OWN MEDS TAKEN TO PHARMACY
--- NOTE | 2020-03-28 07:35 | NUR ---
REPORT AND CARE ENDORSED TO ELIZABETH MARTINEZ
--- NOTE | 2020-03-28 08:05 | NUR ---
DR. BORGES Provider/Hospitalist at bedside.
--- NOTE | 2020-03-28 08:15 | NUR ---
TEMP 97.5 RECTALLY. PLACED WARM BLANKETS ON PT. MONITORING TEMP. Addendum: 03/28/20 at 1712 by Monika Rankin RN CORRECTED TIME AT 0900 FOR CHARTING.
[2020-03-28] MEDS: cefTRIAXone 1GM/50ML D5W 50 ML IV SCH (09:02)
[2020-03-28] MEDS ORDERED: [UNRECOGNIZED DRUG - OTHER] PO SCH (10:00)
--- NOTE | 2020-03-28 10:00 | NUR ---
SBP DECREASED TO 80'S. INCREASED LEVOPHED GTT. TO 6 MCG. MONITORING BP.
[2020-03-28] MEDS: SODIUM CHLOR 0.9% PF (SALINE LOCK) 10ML VIAL/SYR IV SCH ×2 (10:06→21:27)
[2020-03-28] MEDS: FAMOTIDINE (10MG/ML) 2ML VL IV SCH ×2 (10:06→21:27)
[2020-03-28] MEDS: BRIVIACT 50 MG PO SCH ×2 (10:37→21:27)
[2020-03-28] MEDS: NOREPINEPHRINE 8 MG/250ML KIT 250 ML IV SCH (10:38)
--- NOTE | 2020-03-28 11:00 | NUR ---
SBP INCREASED TO 90'S. CONTINUING TO MONITOR TEMP.
--- NOTE | 2020-03-28 11:30 | NUR ---
TEMP INCREASED TO 98.4 RECTALLY.
--- NOTE | 2020-03-28 12:30 | NUR ---
RETURNED CALL TO PT'S. AND GAVE HIM AN UPDATE ON PT.
[2020-03-28] MEDS: fentaNYL Drip 2500mCg/250mlNS 250 ML IV SCH (12:33)
--- NOTE | 2020-03-28 15:19 | NUR ---
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 IS POSITIVE FOR MRSA NARES.
--- NOTE | 2020-03-28 17:31 | NUR ---
DR. Dinorah MELENDREZ Provider/Hospitalist at bedside. GAVE UPDATE ON PT. NEW ORDERS RECEIVED.
--- NOTE | 2020-03-28 17:45 | NUR ---
Called/paged Dr. ROSARIO called re:[DR. Dinorah MELENDREZ WOULD LIKE TO KNOW IF DR. ROSARIO WANTS TO START PT. ON STEROIDS SINCE SHE IS WHEEZING]. CONNECTED TO DR. ROSARIO'S CELL PHONE. NEW ORDER RECEIVED. Continue care.
[2020-03-28] MEDS: methylPREDNISolone SOD SUCC 40 MG/ML VL IV SCH ×2 (18:14→23:46)
--- NOTE | 2020-03-28 20:15 | NUR ---
OPENING NOTE: INTUBATED AND SEDATED. GROSSLY UNRESPONSIVE BUT MUSCLES VERY TENSE AND RESISTIVE TO CARE. PUPILS UNEQUAL L > R, NOTED WITH SCLERAL IRREGULARITIES/DEFORMITIES TO RIGHT. HYPOGAG/COUGH. NSR, 70s. SBP 120-140s. 7.5 ETT 24 AT THE LIP. LS WITH WHEEZES THROUGHOUT. EVEN AND UNLABORED BREATHING. MODERATE AMOUNT OF THICK CLEAR/CREAMY ETT SECRETIONS. ABD SOFT. HYPOACTIVE BS. NGT + AIR BOLUS, PLACED TO LIS, LIGHT BILIOUS. UNKNOWN LBM. RODRIGUEZ PATENT AND INTACT, DRAINING LIGHT FLACO URINE. SKIN GROSSLY INTACT, SEE SKIN AND WOUND FLOWSHEET FOR ASSESSMENT. RIGHT UPPER ARM PICC, CDI, AND PATENT WITH BLOOD RETURN. REINFORCED POC. MAINTAINED PATIENT SAFETY: BED LOCKED AND IN THE LOWEST POSITION, FREQUENT VISUAL CHECKS. WILL CONT CARE
--- NOTE | 2020-03-28 20:36 | NUR ---
ATTEMPTED TO TITRATE SEDATION: PATIENT SAT STRAIGHT UP IN BED, HIGH PRESSURING AND COUGHING ON THE VENTILATOR. WILL TITRATE ABLE.
[2020-03-28] MEDS: MUPIROCIN 2% OINT 15gm or 22gm EACHNOSTRI SCH (21:27)
[2020-03-29] VITALS (105 sets, daily range): BP systolic 93–143; BP diastolic 52–77
[2020-03-29] MEDS: fentaNYL Drip 2500mCg/250mlNS 250 ML IV SCH ×2 (00:46→12:26)
--- NOTE | 2020-03-29 01:14 | NUR ---
PARTIAL BED BATH, CITLALLI CARE, RODRIGUEZ CARE, ORAL CARE, AND PARTIAL LINEN CHANGE COMPLETED
[2020-03-29] MEDS: IPRATROPIUM BROM 0.5 MG/2.5ML INH SOL NEB SCH ×6 (02:08→22:12)
[2020-03-29] MEDS: ALBUTEROL SULF 2.5 MG/0.5ML(0.5%) NEB SOLN NEB SCH ×6 (02:08→22:12)
[2020-03-29 03:29] LABS: Hematocrit 42.7 % (36.0-46.0); Hemoglobin 14.3 g/dL (12.2-16.2); Mean Corpuscular Hemoglobin 31.2 pg (28.0-32.0); Mean Corpuscular Hgb Conc. 33.6 g/dL (32.0-36.0); Mean Corpuscular Volume 92.9 fL (80.0-100.0); Platelet Count (auto) 249 10^3/uL (140-450); Red Blood Cells 4.59 10^6/uL (4.0-5.20); Red Cell Distribution Width 16.9 % (11.8-14.3); White Blood Cell 8.5 10^3/uL (4.4-10.8)
[2020-03-29 03:42] LABS: Basophils % (manual) 0 (0.0-2.0); Blast Cells 0; Eosinophils % (manual) 0 (0-7); Metamyelocytes % 0; Monocytes % (manual) 0 (0-12); Myelocytes % 0; Promyelocytes % 0; Reactive Lymphocytes 0
[2020-03-29 03:43] LABS: BUN/Creatinine Ratio 25.5; Calcium 8.5 mg/dL (8.5-10.1)
[2020-03-29] MEDS: MIDAZOLAM DRIP 50 mg/50mL 50 ML IV SCH ×5 (03:55→22:28)
[2020-03-29 04:20] LABS: Band Neutrophils % (manual) 1; Lymphocytes % (manual) 1 (10.0-50.0)
[2020-03-29] MEDS: methylPREDNISolone SOD SUCC 40 MG/ML VL IV SCH ×4 (05:36→23:59)
--- NOTE | 2020-03-29 07:19 | NUR ---
REPORT AND CARE ENDORSED TO ELIZABETH MARTINEZ
[2020-03-29] MEDS: NOREPINEPHRINE 8 MG/250ML KIT 250 ML IV SCH (08:44)
[2020-03-29] MEDS: FAMOTIDINE (10MG/ML) 2ML VL IV SCH ×2 (09:54→21:38)
[2020-03-29] MEDS: SODIUM CHLOR 0.9% PF (SALINE LOCK) 10ML VIAL/SYR IV SCH ×2 (09:54→21:38)
[2020-03-29] MEDS: cefTRIAXone 1GM/50ML D5W 50 ML IV SCH (09:54)
[2020-03-29] MEDS: MUPIROCIN 2% OINT 15gm or 22gm EACHNOSTRI SCH ×2 (09:55→21:38)
[2020-03-29] MEDS: BRIVIACT 50 MG PO SCH ×2 (10:07→21:38)
--- NOTE | 2020-03-29 10:50 | NUR ---
Nutrition Assessment Notes Please see attached link for complete assessment Est energy needs BW 67 [id number] kcal (23-25 kcal/kg BW) est protein needs 67-80 g (1.0-1.2g/kg BW) will reassess prn. Addendum: 03/29/20 at [address] Amended: Links added.
--- NOTE | 2020-03-29 11:00 | NUR ---
DR. ROSARIO Provider/Hospitalist at bedside. GAVE UPDATE ON PT. NEW ORDERS RECEIVED.
--- NOTE | 2020-03-29 12:15 | NUR ---
WOUND CARE NOTE: IN TO SEE PATIENT AT THIS TIME FOR SKIN INTEGRITY MONITORING. PATIENT HAS CURRENT ALYSSA SCORE OF 10. SHE IS INTUBATED, SEDATED, RESTING ON SPECIALTY AIR MATTRESS. PATIENT ADMITTED TO [facility] WITH DIAGNOSIS OF OVERDOSE. SHE IS NOTED TO HAVE MULTIPLE SMALL 1 X1 CM SCABBED ABRASIONS/BLISTERS. NO OPEN OR DRAINING AREAS NOTED. LEFT OPEN TO AIR. PATIENT TURNED TO RIGHT SIDE. SHE IS NOTED TO HAVE BLANCHABLE AND SLOW TO LAUREN AREAS TO SACRUM. WOUND PHOTOS TAKEN AT THIS TIME FOR REFERENCE. NO OTHER SKIN INTEGRITY ISSUES SEEN AT THIS TIME. RECOMMEND: SKIN/WOUND CARE PLAN, FREQUENT TURN SCHEDULE Q 2 HOURS, PRN CONDITION PERMITS, WITH PRESSURE REDISTRIBUTION USING PILLOWS/WEDGES, BID/PRN APPLICATION WITH MOISTURE BARRIER CREAM, OPTIFOAM GENTLE SACRAL DRESSING, DIETARY CONSULT, CONTINUED MONITORING BY WOUND CARE TEAM. Addendum: 03/29/20 at 1509 by Toya Nunes RN Amended: Links added.
--- NOTE | 2020-03-29 12:30 | NUR ---
SLOWLY TITRATING PT'S. SEDATION DOWN PER DR. ROSARIO. PT. RESTING WITH EYES CLOSED. NO SIGNS OF DISTRESS OR DISCOMFORT. NO MOVEMENT OF EXTREMITIES SEEN. DARYL. HAND MITTENS OFF AT THIS TIME.
--- NOTE | 2020-03-29 13:55 | NUR ---
SBP ONE TEENS TO 120'S. TITRATED PT. OFF LEVOPHED GTT. MONITORING BP.
--- NOTE | 2020-03-29 16:00 | NUR ---
SBP ONE TEENS TO 120'S.
--- NOTE | 2020-03-29 16:20 | NUR ---
DR. BORGES Provider/Hospitalist at bedside. GAVE UPDATE ON PT. ASKED EARLIER TODAY IF HE CAN SPEAK WITH NEUROLOGIST. INFORMED DR. BORGES AND HE CALLED , NO ANSWER AND LEFT MESSAGE.
--- NOTE | 2020-03-29 17:30 | NUR ---
PT. OPENING EYES SPONTANEOUSLY AT TIMES, NO TRACKING. HAS GAG/COUGH REFLEX. RESPONDS TO PAINFUL/TACTILE STIMULI. NO MOVEMENT OF EXTREMITIES SEEN. PT. REMAINS ON SEDATION VERSED GTT. AT 13 MG./HR. AND FENTANYL GTT. AT 175 MCG.
--- NOTE | 2020-03-29 18:19 | NUR ---
Respiratory note: RECEIVED PT ON VENT ([id number]). VENT CONNECTED TO RED OUTLET AND O2 SOURCE ALARMS ARE SET AND AUDIBLE. AMBU BAG AND MASK AT BEDSIDE. BS ARE COURSE T/O SXD FOR SMALL THICK BRAN/CREAMY SECRETIONS. PTS CURRENT TEMP READING AT 99.1F. RT NAME AND PAGER ASSIGNMENT WRITTEN ON PTS ROOM BOARD. WILL CONTINUE TO MONITOR.
--- NOTE | 2020-03-29 20:15 | NUR ---
OPENING NOTE: INTUBATED AND SEDATED. GROSSLY UNRESPONSIVE, DOES NOT OPEN EYES OR TRACK AT THIS TIME. DOES PULL LEGS INTO SELF, REACHES FOR THE ETT, AND ATTEMPTS TO SIT UP IN BED. PUPILS UNEQUAL L > R, NOTED WITH SCLERAL IRREGULARITIES/DEFORMITIES TO RIGHT. HYPOGAG/COUGH. NSR, 70s. SBP 120-140s. 7.5 ETT 24 AT THE LIP. LS WITH WHEEZES THROUGHOUT. EVEN AND UNLABORED BREATHING. MODERATE AMOUNT OF THICK CLEAR/CREAMY ETT SECRETIONS. ABD SOFT. HYPOACTIVE BS. NGT + AIR BOLUS, PLACED TO LIS, LIGHT BILIOUS. UNKNOWN LBM. RODRIGUEZ PATENT AND INTACT, DRAINING LIGHT FLACO URINE. SKIN GROSSLY INTACT, SEE SKIN AND WOUND FLOWSHEET FOR ASSESSMENT. RIGHT UPPER ARM PICC, CDI, AND PATENT WITH BLOOD RETURN. REINFORCED POC. MAINTAINED PATIENT SAFETY: BED LOCKED AND IN THE LOWEST POSITION, FREQUENT VISUAL CHECKS. WILL CONT CARE
--- NOTE | 2020-03-29 21:00 | NUR ---
SEDATION VACATION - UNABLE TO COMPLETE AT THIS TIME: PATIENT REACHING FOR ETT, PULLS LEGS IN, AND ATTEMPTS TO SIT UP IN BED. SOFT MITTENS ON BILATERALLY FOR SAFETY. WILL REASSESS SEDATION LEVEL AND TITRATE ABLE. Addendum: 03/29/20 at 2208 by Jasmine Kwong RN RN Amended: Links added.
--- NOTE | 2020-03-29 22:12 | NUR ---
Respiratory note: AT BEDSIDE FOR ROUTINE VENT CHECK. BS ARE COURSE WHEEZES T/O, SXD FOR SMALL AMOUNT OF THICK BRAN. NEB TX GIVEN VIA AEROGEN. NO ADVERSE REACTION NOTED. PTS CURRENT TEMP READING AT 99.0F. WILL CONTINUE TO MONITOR.
--- NOTE | 2020-03-29 23:57 | NUR ---
Respiratory note: AT BEDSIDE FOR ROUTINE VENT CHECK. SXD VIA ETT FOR SMALL/SCANT WHITE-CLEAR. PTS CURRENT TEMP READING AT 98.2F. NO VENT CHANGES MADE. WILL CONTINUE TO MONITOR.
[2020-03-30] VITALS (88 sets, daily range): BP systolic 104–187; BP diastolic 56–110
[2020-03-30] MEDS: IPRATROPIUM BROM 0.5 MG/2.5ML INH SOL NEB SCH ×6 (02:14→22:32)
[2020-03-30] MEDS: ALBUTEROL SULF 2.5 MG/0.5ML(0.5%) NEB SOLN NEB SCH ×6 (02:14→22:32)
--- NOTE | 2020-03-30 02:14 | NUR ---
Respiratory note: AT BEDSIDE FOR ROUTINE VENT CHECK. BS ARE FINE COURSE WHEEZES T/O. NEB TX GIVEN VIA AEROGEN. NO ADVERSE REACTION NOTED. PTS CURRENT TEMP READING AT 99.0F. WILL CONTINUE TO MONITOR.
[2020-03-30] MEDS: fentaNYL Drip 2500mCg/250mlNS 250 ML IV SCH (02:49)
--- NOTE | 2020-03-30 02:50 | NUR ---
BED BATH WITH CHG WIPES, CITLALLI CARE, RODRIGUEZ CARE, ORAL CARE, AND FULL LINEN CHANGE COMPLETED
--- NOTE | 2020-03-30 02:50 | NUR ---
RIGHT PERIORBITAL EDEMA NOTED: WILL ENDORSE TO DAY SHIFT.
[2020-03-30] MEDS: MIDAZOLAM DRIP 50 mg/50mL 50 ML IV SCH (03:41)
--- NOTE | 2020-03-30 04:05 | NUR ---
Respiratory note: AT BEDSIDE FOR END OF SHIFT VENT CHECK. NO CHANGES MADE. PTS CURRENT TEMP READING AT 97.9F. WILL HAVE DAY SHIFT CONTINUE POC.
[2020-03-30 04:20] LABS: Basophils # (auto) 0 10 ^3/uL (0-0.2); Basophils % (auto) 0.3 % (0.0-2.0); Eosinophils # (auto) 0 10 ^3/uL (0-0.8); Hematocrit 41.8 % (36.0-46.0); Hemoglobin 13.9 g/dL (12.2-16.2); Lymphocytes # (auto) 0.2 10 ^3/uL (0.4-5.4); Lymphocytes % (auto) 3.1 % (10.0-50.0); Mean Corpuscular Hgb Conc. 33.2 g/dL (32.0-36.0); Mean Corpuscular Volume 93.2 fL (80.0-100.0); Monocytes # (auto) 0.2 10 ^3/uL (0-1.3); Monocytes % (auto) 3.8 % (0.0-12.0); Neutrophils % (auto) 92.8 % (37.0-80.0); Platelet Count (auto) 262 10^3/uL (140-450); Red Blood Cells 4.48 10^6/uL (4.0-5.20); Red Cell Distribution Width 16.8 % (11.8-14.3); White Blood Cell 5.4 10^3/uL (4.4-10.8)
[2020-03-30 04:31] LABS: BUN/Creatinine Ratio 31.3; Calcium 8.8 mg/dL (8.5-10.1); Potassium 3.7 mmol/L (3.5-5.1)
[2020-03-30] MEDS: methylPREDNISolone SOD SUCC 40 MG/ML VL IV SCH ×3 (05:33→18:29)
[2020-03-30] MEDS: NOREPINEPHRINE 8 MG/250ML KIT 250 ML IV SCH (05:34)
--- NOTE | 2020-03-30 07:33 | NUR ---
REPORT AND CARE ENDORSED TO ELIZABETH ROSS
--- NOTE | 2020-03-30 07:35 | NUR ---
REPORT REPORT RECEIVED FROM GUIDO JOHNSON, CARE ASSUMED. VS STABLE AT THIS TIME.
--- NOTE | 2020-03-30 07:45 | NUR ---
INITIAL CONTACT PT OBSERVED RESTING IN BED, ORALLY INTUBATED ON MECHANICAL VENTILATION. TOLERATING WELL AT THIS TIME, OXYGEN SATURATION 92%, NO SIGNS OF DISTRESS. PT UNDER SEDATION OF VERSED AND FENTANYL. SEE IV SPREADSHEET. STRONG COUGH AND GAG NOTED. SEE NEURO ASSESSMENT FOR PUPILS. PT OPENS EYES TO PAINFUL STIMULI AND ATTEMPTS TO SIT UP. DOES NOT FOLLOW VERBAL COMMANDS AT THIS TIME. PULSES PALPABLE BILATERALLY. VS STABLE. RIGHT NARE NGT TO LIS. RODRIGUEZ CATHETER PATENT AND SECURE BELOW BLADDER. SEE SKIN/WOUND ASSESSMENT. SCD'S IN PLACE. ALL EXTREMITIES OFF LOADED ON PILLOWS. ALARMS IN PLACE. BED LOCKED IN LOWEST POSITION, WILL CONTINUE TO MONITOR.
--- NOTE | 2020-03-30 08:06 | NUR ---
MD UPDATE CALLED FOR UPDATE ON LABS AND VENTILATOR SETTINGS. MD WOULD LIKE TO WEAN DOWN SEDATION AND ATTEMPT CPAP TRIAL TODAY. ORDERS OBTAINED FOR PRECEDEX.
[2020-03-30] MEDS: DexMEDEtomidine 400 MCG in D5W 5% 96 ML IV SCH (09:44)
[2020-03-30] MEDS: cefTRIAXone 1GM/50ML D5W 50 ML IV SCH (10:10)
[2020-03-30] MEDS: FAMOTIDINE (10MG/ML) 2ML VL IV SCH ×2 (10:10→21:50)
[2020-03-30] MEDS: SODIUM CHLOR 0.9% PF (SALINE LOCK) 10ML VIAL/SYR IV SCH ×2 (10:10→21:50)
[2020-03-30] MEDS: BRIVIACT 50 MG PO SCH ×2 (10:16→21:00)
[2020-03-30] MEDS: MUPIROCIN 2% OINT 15gm or 22gm EACHNOSTRI SCH ×2 (10:17→21:50)
--- NOTE | 2020-03-30 10:41 | NUR ---
SEADTION VACATION SEDATION OF VERSED AND FENTANYL TITRATED OFF FOR CPAP TRIAL ATTEMPT TODAY PER MD ORDER.
--- NOTE | 2020-03-30 11:04 | NUR ---
Nutrition Consult/Followup Note Wt 62.1kg Pt is intubated and on sedation vacation per Rn note. Pt to have CPAP trial today 03/30 per RN note and MD order. Pt is currently NPO with no diet order. Consider advancing diet as medically feasible depending on CPAP trial. If TF is recommender per MD order consider Osmolite 1.2 at 55 ml/hr. Est energy needs BW 67 [id number] kcal (23-25 kcal/kg BW) est protein needs 67-80 g (1.0-1.2g/kg BW) will reassess prn. Labs: Creat 0.48L, Alb 2.7L, GLUC 126H BM: Pt with 300 ml of gastric drainage 03/30 per Rn note Skin: BS 15 mod risk, full details in patient care associate note PES Altered nutrition related lab values r/t current chronic medical condition aeb hyperglycemia, mod hypoalb Impaired swallowing r/t current medical condition aeb pt`s intubated with order of NPO Comments 1) advance diet as medically feasible 2) consider EN support with Osmolite @ 55 ml/hr per MD approval 3) continue current plan of care Expected Outcomes/Goals: pt will have improved labs pt will advance and sarina po F/u high 2-3 days
--- NOTE | 2020-03-30 12:19 | NUR ---
NEURO ASSESSMENT PATIENT OPENS EYES TO VERBAL COMMAND, BUT IS STILL DROWSY. NOT ABLE TO STAY AWAKE. VS REMAIN STABLE. ORIENTING PATIENT TO LOCATION, PLACE, AND SITUATION.
[2020-03-30] MEDS: ACETYLCYSTEINE 20%(200MG/ML) SOL 4ML NEB SCH ×2 (14:00→22:32)
--- NOTE | 2020-03-30 14:35 | NUR ---
Respiratory note: ROUTINE VENT CHECK DONE. PT PLACED ON CPAP TRIAL. PT IMMIDEATLY STARTED COUGHING SEVERELY, LOW VT'S, AND HIGH PEAK PRESSURES. RN NOTIFIED OF CHANGE. PT PLACED ON PRECEDEX AND PLACED BACK ON A/C PREVIOUS SETTINGS.
--- NOTE | 2020-03-30 14:50 | NUR ---
CPAP TRIAL ATTEMPT PATIENT ABLE TO OPEN EYES AND FOLLOW SIMPLE VERBAL COMMANDS. RT PLACED PATIENT ON CPAP MODE ON VENTILATOR PER MD ORDER. LOW TIDAL VOLUMES AND HIGH PRESSURE ALARM. FREQUENT STRONG, COUGHING EPISODE, PT ATTEMPTING TO SIT UP OR PULL AT ETT. PATIENT ONLY TOLERATED TRIAL FOR A FEW MINUTES. PATIENT PLACED BACK ON AC MODE BY RT.
--- NOTE | 2020-03-30 15:15 | NUR ---
Respiratory note: PT PLACED ON CPAP TRIAL FOR THE SECOND TIME. PT IS ON PRECEDEX AND TOLERATING TRIAL WELL. WEANING PARAMETERS AND ABG TO BE OBTAIN. RN AT BEDSIDE AND AWARE OF CHANGES.
--- NOTE | 2020-03-30 15:16 | NUR ---
CPAP TRIAL PATIENT SEEMS TO APPEAR MORE CALM. NO MORE COUGHING EPISODES. RT PLACED PATIENT ON CPAP TRIAL. PATIENT TOLERATING WELL AT THIS TIME. WILL CONTINUE TO MONITOR.
--- NOTE | 2020-03-30 15:37 | NUR ---
MD VISIT DR.GOMEZ CANTRELL AT BEDSIDE.
--- NOTE | 2020-03-30 16:26 | NUR ---
Respiratory note: WEANING PARAMETERS NIF -51.2, VC 1250, LEAK 180, RSBI 20. ABG RESULTS GIVEN TO . PT EXTUBATED PER ORDERS. PT PLACED ON COOL MIST 8L 40% FIO2. PT HAS STRONG COUGH. NO STRIDOR NOTED. HR 109, RR 18, POX 95%, BP 177/101. WILL CONTINUE MONITOR PT.
--- NOTE | 2020-03-30 16:26 | NUR ---
RT TO EXTUBATE PER RAUL SHELDON TO EXTUBATE PATIENT AND PLACE ON COOL MIST MASK. PATIENT ON COOL MIST MASK AT 40% FIO2. OXYGEN SATURATION 95%. NO STRIDOR OR SHORTNESS OF BREATH NOTED. WILL CONTINUE TO MONITOR.
--- NOTE | 2020-03-30 17:21 | NUR ---
CARES PARTIAL LINEN CHANGE COMPLETE. BACK CLEANSED WITH CHG WIPES. PATIENT TOLERATED ACTIVITY WELL. VS REMAIN STABLE. PATIENT DENIES PAIN. SKIN REASSESSMENT COMPLETE. NEW GENTLE OPTIFOAM PLACED ON SACRUM. PATIENT REPOSITIONED ON SIDE. BED LOCKED IN LOWEST POSITION, CALL LIGHT PLACED WITHIN REACH. PATIENT INSTRUCTED TO CALL FOR ASSISTANCE.
--- NOTE | 2020-03-30 18:00 | NUR ---
OXYGENATION PATIENT PLACED ON NASAL CANNULA ON 3L, OXYGEN SATURATION ONLY MAINTAINING 88%. OXYGEN INCREASED TO 5L, OXYGENATION 95%. DENIES DISTRESS OR SHORTNESS OF BREATH.
--- NOTE | 2020-03-30 18:05 | NUR ---
SWALLOW EVALUATION RN PERFORMED SWALLOW EVALUATION. PATIENT REPOSITIONED IN HIGH FOWLERS. PATIENT TOLERATED ICE CHIPS, APPLE SAUCE, AND WATER WITHOUT DIFFICULTY.
--- NOTE | 2020-03-30 18:10 | NUR ---
PAGED PAGED REGARDING HYPERTENSION. AWAITING CALL BACK.
--- NOTE | 2020-03-30 18:23 | NUR ---
RETURNED PAGE NEW ORDERS RECEIVED.
[2020-03-30] MEDS: METOPROLOL TARTRATE 25 MG TAB PO SCH ×2 (18:29→22:00)
[2020-03-30] MEDS: amLODIPine BESYLATE 5 MG TAB PO SCH (18:29)
[2020-03-30] MEDS ORDERED: METOPROLOL TARTRATE 1MG/1ML-5ML VIAL IV ONE (18:30)
--- NOTE | 2020-03-30 18:57 | NUR ---
AT BEDSIDE FOR MED MATHEW GILES.
--- NOTE | 2020-03-30 19:15 | NUR ---
REPORT REPORT GIVEN TO DOMENICA JOHNSON, CARE ENDORSED.
[2020-03-31] VITALS (46 sets, daily range): BP systolic 132–186; BP diastolic 73–95
[2020-03-31] MEDS: methylPREDNISolone SOD SUCC 40 MG/ML VL IV SCH ×4 (00:23→18:00)
[2020-03-31] MEDS: IPRATROPIUM BROM 0.5 MG/2.5ML INH SOL NEB SCH ×6 (02:41→22:23)
[2020-03-31] MEDS: ALBUTEROL SULF 2.5 MG/0.5ML(0.5%) NEB SOLN NEB SCH ×6 (02:41→22:23)
[2020-03-31 03:35] LABS: Basophils # (auto) 0 10 ^3/uL (0-0.2); Eosinophils # (auto) 0 10 ^3/uL (0-0.8); Hematocrit 45.1 % (36.0-46.0); Hemoglobin 14.6 g/dL (12.2-16.2); Lymphocytes # (auto) 0.3 10 ^3/uL (0.4-5.4); Lymphocytes % (auto) 2.2 % (10.0-50.0); Mean Corpuscular Hemoglobin 30.1 pg (28.0-32.0); Mean Corpuscular Hgb Conc. 32.5 g/dL (32.0-36.0); Mean Corpuscular Volume 92.8 fL (80.0-100.0); Monocytes # (auto) 0.5 10 ^3/uL (0-1.3); Monocytes % (auto) 3.9 % (0.0-12.0); Neutrophils # (auto) 12.4 10 ^3/uL (1.6-8.6); Neutrophils % (auto) 93.9 % (37.0-80.0); Nucleated Red Blood Cells % 0.1 %; Platelet Count (auto) 327 10^3/uL (140-450); Red Blood Cells 4.86 10^6/uL (4.0-5.20); Red Cell Distribution Width 16.6 % (11.8-14.3); White Blood Cell 13.2 10^3/uL (4.4-10.8)
[2020-03-31 03:58] LABS: Calcium 9.2 mg/dL (8.5-10.1); Potassium 3.4 mmol/L (3.5-5.1)
[2020-03-31 04:00] LABS: BUN/Creatinine Ratio 31.5
[2020-03-31] MEDS: NOREPINEPHRINE 8 MG/250ML KIT 250 ML IV SCH (05:12)
[2020-03-31] MEDS: ACETYLCYSTEINE 20%(200MG/ML) SOL 4ML NEB SCH ×3 (06:09→22:23)
--- NOTE | 2020-03-31 07:25 | NUR ---
REPORT REPORT RECEIVED FROM DOMENICA JOHNSON, CARE ASSUMED.
--- NOTE | 2020-03-31 07:40 | NUR ---
INITIAL CONTACT FEMALE PATIENT OBSERVED RESTING IN BED. NO DISTRESS NOTED AT THIS TIME. PATIENT IS AWAKE, ALERT, AND ORIENTED. FOLLOWS COMMANDS AND IS ABLE TO ASSIST WITH REPOSITIONING IN BED. AFEBRILE. PUPILS IRREGULAR. STRONG COUGH, PRODUCTIVE WITH SPUTUM PRODUCTION. PULSES PALPABLE RADIAL AND PEDAL BILATERALLY. SCD'S ON BILATERAL LOWER EXTREMITIES. PATIENT ON 6 L NASAL CANNULA, DENIES SHORTNESS OF BREATH. HOME OXYGEN IN USE 2-3 L PER PATIENT. SEE SKIN/WOUND ASSESSMENT. PATIENT REPOSITIONED ON SIDE, ALL EXTREMITIES OFF LOADED ON PILLOWS. BED ALARM IN PLACE. PATIENT INSTRUCTED TO CALL FOR ASSISTANCE, VERBALIZED UNDERSTANDING. CALL LIGHT AND BELONGINGS PLACED WITHIN REACH. WILL CONTINUE TO MONITOR.
[2020-03-31] MEDS: DexMEDEtomidine 400 MCG in D5W 5% 96 ML IV SCH (08:05)
--- NOTE | 2020-03-31 10:00 | NUR ---
FAMILY PATIENT ITALO CALLED FOR UPDATE. PASSWORD PROVIDED. STATED PATIENT HAD SEIZURE MULTIPLE TIMES THE DAY SHE WAS ADMITTED. NO SEIZURE ACTIVITY NOTED DURING CURRENT ADMISSION.
[2020-03-31] MEDS: cefTRIAXone 1GM/50ML D5W 50 ML IV SCH (10:13)
[2020-03-31] MEDS: ACETAMINOPHEN 650 mg PER 20 mL UD GT PRN (10:13)
[2020-03-31] MEDS: METOPROLOL TARTRATE 25 MG TAB PO SCH ×2 (10:13→22:00)
[2020-03-31] MEDS: amLODIPine BESYLATE 5 MG TAB PO SCH (10:14)
[2020-03-31] MEDS: MUPIROCIN 2% OINT 15gm or 22gm EACHNOSTRI SCH ×2 (10:14→22:00)
[2020-03-31] MEDS: FAMOTIDINE (10MG/ML) 2ML VL IV SCH ×2 (10:14→22:00)
[2020-03-31] MEDS: SODIUM CHLOR 0.9% PF (SALINE LOCK) 10ML VIAL/SYR IV SCH ×2 (10:15→22:00)
[2020-03-31] MEDS: BRIVIACT 50 MG PO SCH ×2 (10:17→22:00)
--- NOTE | 2020-03-31 10:20 | NUR ---
RESPIRATORY ASSESSMENT RT AT BEDSIDE FOR BREATHING TX. RT TRANSFERRED PATIENT ON TO OXYMIZER 5L, OXYGEN SATURATION MAINTAINING 93-95%. DENIES SHORTNESS OF BREATH OR DISTRESS. PRODUCTIVE COUGH PRESENT.
--- NOTE | 2020-03-31 10:30 | NUR ---
INCENTIVE SPIROMETER PATIENT EDUCATED ON IMPORTANCE OF USING IS AND HOW TO PERFORM EXERCISE PROPERLY. PATIENT PERFORMED IS 10 TIMES. BEST EFFORT REACHING 1000 ML. PATIENT INSTRUCTED TO USE IS EACH HOUR 10 TIMES WHILE AWAKE. PATIENT VERBALIZED UNDERSTANDING.
--- NOTE | 2020-03-31 10:44 | NUR ---
PHYSICAL THERAPY EVAL PT AT BEDSIDE WORKING WITH PATIENT.
--- NOTE | 2020-03-31 10:55 | NUR ---
SWALLOW EVALUATED. PATIENT HAS NATURAL TEETH UPPER AND LOWER. PATIENT IS ABLE TO FOLLOW DIRECTIONS. PATIENT ABLE TO TOLERATE MECHANICAL SOFT DIET TEXTURE WITH THIN LIQUIDS WITH NO OVERT SIGNS OR SYMPTOMS OF ASPIRATION. NURSING NOTIFIED.
--- NOTE | 2020-03-31 13:15 | NUR ---
PULSE OX PT KEEPS REMOVING PULSE OX FROM FINGER. PT INSTRUCTED TO LEAVE PROBE IN PLACE AND IMPORTANCE OF MONITORING. PT VERBALIZED UNDERSTANDING BUT CONTINUES TO REMOVE MONITOR.
--- NOTE | 2020-03-31 15:35 | NUR ---
CARES PATIENT HAD SMALL LIQUID BOWEL MOVEMENT. CITLALLI CARE PERFORMED. COMPLETE LINEN CHANGE COMPLETED. PT REPOSITIONED ON SIDE. VS STABLE. DENIES PAIN. CALL LIGHT PLACED WITHIN REACH. WILL CONTINUE TO MONITOR.
--- NOTE | 2020-03-31 18:50 | NUR ---
MD VISIT DR. ARANA ROUNDING AT BEDSIDE.
--- NOTE | 2020-03-31 19:14 | NUR ---
REPORT REPORT GIVEN DOMENICA JOHNSON, CARE ENDORSED.
[2020-04-01] VITALS (14 sets, daily range): BP systolic 143–177; BP diastolic 78–103
[2020-04-01] MEDS: ALBUTEROL SULF 2.5 MG/0.5ML(0.5%) NEB SOLN NEB SCH ×6 (02:25→22:54)
[2020-04-01] MEDS: IPRATROPIUM BROM 0.5 MG/2.5ML INH SOL NEB SCH ×6 (02:25→22:54)
[2020-04-01] MEDS: methylPREDNISolone SOD SUCC 40 MG/ML VL IV SCH ×4 (05:57→20:41)
[2020-04-01] MEDS: ACETYLCYSTEINE 20%(200MG/ML) SOL 4ML NEB SCH ×3 (06:25→22:54)
[2020-04-01] MEDS: DexMEDEtomidine 400 MCG in D5W 5% 96 ML IV SCH (08:05)
[2020-04-01] MEDS: cefTRIAXone 1GM/50ML D5W 50 ML IV SCH (09:45)
[2020-04-01] MEDS: amLODIPine BESYLATE 5 MG TAB PO SCH (09:46)
[2020-04-01] MEDS: FAMOTIDINE (10MG/ML) 2ML VL IV SCH ×2 (09:46→20:41)
[2020-04-01] MEDS: MUPIROCIN 2% OINT 15gm or 22gm EACHNOSTRI SCH ×2 (09:47→20:40)
[2020-04-01] MEDS: SODIUM CHLOR 0.9% PF (SALINE LOCK) 10ML VIAL/SYR IV SCH ×2 (10:00→20:41)
[2020-04-01] MEDS: NOREPINEPHRINE 8 MG/250ML KIT 250 ML IV SCH (10:00)
[2020-04-01] MEDS: LACOSAMIDE 50 MG TAB PO SCH ×2 (10:00→23:03)
[2020-04-01] MEDS: BRIVIACT 50 MG PO SCH ×2 (10:00→20:42)
[2020-04-01] MEDS: METOPROLOL TARTRATE 25 MG TAB PO SCH ×3 (10:00→20:42)
--- NOTE | 2020-04-01 11:36 | NUR ---
Nutrition Followup Notes Wt 62.0 kg Pt is extubated awake with oxymizer, watching TV when rounded this morning. Pt is currently with a mechanical soft diet, appetite is poor aeb 25% PO intake over 2 meals. Pt stated her appetite is poor d/t the food upsets her stomach right now. Pt with no other noted distress. Est energy needs BW 67 [id number] kcal (23-25 kcal/kg BW) est protein needs 67-80 g (1.0-1.2g/kg BW) will reassess prn. Labs: K 3.4L, 4Alb 2.7L, GLUC 126H BM: Pt had 1 BM on 04/01 per RN note Skin: BS 16 mod risk, full details in post acute care nurse note PES Altered nutrition related lab values r/t current chronic medical condition aeb hyperglycemia, mod hypoalb Impaired swallowing r/t current medical condition aeb pt`s intubated with order of NPO Comments 1) advance diet as medically feasible (RESOLVED) 2) consider EN support with Osmolite @ 55 ml/hr per MD approval 3) continue current plan of care Expected Outcomes/Goals: pt will have improved labs pt will advance and sarina po F/u high 2-3 days
[2020-04-01] MEDS ORDERED: POTASSIUM CHL 20 Meq TABLET PO ONE (14:30)
--- NOTE | 2020-04-01 14:30 | NUR ---
LATHA ALFONSO recieved to [facility] via hospital bed on ekg monitor tech, and portable 02. Patient connected to unit monitoring and oxygen, and weighed by bedscale. Patient oriented to Alia walter RN, unit, room, bed, and unit policies regarding patient care and visiting hours. All questions and concerns addressed, patient verbalized understanding. Patient awake and alert. No S/S of SOB/distress. Denies pain. See interventions for complete assessment. Bed locked on low position, side rails up x2, bed alarms on at all times. Call sandoval within reach, instructed to call for needed assistance. Will continue to monitor.
--- NOTE | 2020-04-01 15:29 | NUR ---
Dr Dinorah Luong at bedside, updated on patient's status. Patient seen and examined. Plan to downgrade patient to Tele. Will carry out new orders.
--- NOTE | 2020-04-01 16:15 | NUR ---
I spoke with nurse Alia to let her know that we are working on order for home health and walker and oxygen but that due to the late orders, patient will not be able to discharge home today-also waiting for tele psych consult.
--- NOTE | 2020-04-01 16:19 | NUR ---
Called [facility] [phone] spoke with Chula she advises to fax request with supporting documentation to [phone] for authorization. Fax sent to [facility]
--- NOTE | 2020-04-01 16:25 | NUR ---
Called in Tele Psyche Consult to [facility], spoke to Morales.
--- NOTE | 2020-04-01 16:49 | NUR ---
Tele Psyche consult completed. Awaiting report via fax.
--- NOTE | 2020-04-01 17:12 | NUR ---
Dr Schmitz at bedside, updated on patient's status. Patient seen and examined. Per MD, patient is cleared to go home.
--- NOTE | 2020-04-01 17:55 | NUR ---
0800 pt awake and oriented times four . with occassional forgettfullness pt said her cell phone got lost in hospital after checking with cell phone with sat on a chair for a short time pt walked with the PT .No seizure activity noted neurologist increased vimpart po. Pt cleaned up DTI on coccyx optiform applied lots of redness with rash like z gart cream applied area kept dry will observe if rash like picture worsens Addendum: 04/01/20 at 1810 by KIT MCKEON RN RN Pt eating very poorly said she likes turkey sandwich supplied no luck
--- NOTE | 2020-04-01 19:15 | NUR ---
RECEIVED REPORT FROM NURSE GAGNON TO RESUME CARE OF PATIENT.
--- NOTE | 2020-04-01 19:30 | NUR ---
Opening Shift Note Assumed care of patient, awake and alert, patient on falls and seizure precautions. No S/S of distress/SOB or pain. patient has PICC line triple lumen to LUMA saline lock patent and intact flushed with NS and urinary catheter patent and intact draining clear yellow urine to gravity. patient has optifoam to sacrum and scabs to bilateral toes QUENTIN. Instructed on POC and to call for assist PRN, will continue to monitor for changes Q1hr and PRN.
[2020-04-01] MEDS: BACLOFEN 10 MG TAB PO PRN (20:47)
[2020-04-01] MEDS: ACETAMINOPHEN 650 mg PER 20 mL UD GT PRN (20:49)
--- NOTE | 2020-04-01 21:09 | NUR ---
GAVE REPORT TO NURSE BEATTY TO RESUME CARE OF PATIENT.
--- NOTE | 2020-04-01 21:21 | NUR ---
[facility] pt transferred to floor LATHA ALFONSO transfered to via wheelchair on cobbler sole #65 and portable 02 4L oxymizer, patient downgraded to telemetry per Dr Jorge Aguirre. All patient medications and personal belongings transfered with patient to receiving floor. Patient care transfered to 284 with nurse Miller.
--- NOTE | 2020-04-01 21:23 | NUR ---
Opening shift note Assumed care of patient. Patient was transferred from [facility], after sbar received From ELIZABETH Escalante. Patient transferred by wheelchair, is on 4L Oxymizer Patient is now in room 284B. No sob or distress noted at this time. Patient orientated to room and how to use the call light. Patient verbalized understanding. Bed is locked in lowest position. Will continue to monitor q1hr and PRN.
--- NOTE | 2020-04-01 22:55 | NUR ---
Respiratory note: PT REFUSE MED NEBS AT THIS TIME FOR NOW AND 0200. WILL RESUME MED NEBS AT 0600
--- NOTE | 2020-04-02 03:30 | NUR ---
Brian removed Patient was stating that her brian felt very uncomfortable. she did not want to have it on anymore. she states there is burning at the site as well. Patient is ambulating and alert and orientated x4. Removed brian using clean technique. Patient tolerated well. No redness swollen on site. Patient states she feels so much better after the brian was removed. Will continue to monitor.
--- NOTE | 2020-04-02 03:45 | NUR ---
Paged Tele psych paged tele psych we have not received the recommendation fax paperwork. Spoke to medical secretary receptionist, and states she will fax the paperwork over right away. will continue to monitor patient.
--- NOTE | 2020-04-02 03:50 | NUR ---
Received tele psych recommendations. According to tele psych consult no [id number] hold patient is cleared to discharge home to . Will continue to monitor and put a copy of paperwork in patients chart.
[2020-04-02] MEDS: BACLOFEN 10 MG TAB PO PRN ×2 (04:11→14:57)
--- NOTE | 2020-04-02 04:16 | NUR ---
Pain Patient states pain 8/10 to her lower back. Will medicate and reassess per md orders. Will continue to monitor.
[2020-04-02 05:00] VITALS: BP 154/93
[2020-04-02] MEDS: ALBUTEROL SULF 2.5 MG/0.5ML(0.5%) NEB SOLN NEB SCH ×3 (05:53→14:44)
[2020-04-02] MEDS: IPRATROPIUM BROM 0.5 MG/2.5ML INH SOL NEB SCH ×3 (05:53→14:44)
[2020-04-02] MEDS: ACETYLCYSTEINE 20%(200MG/ML) SOL 4ML NEB SCH (05:55)
--- NOTE | 2020-04-02 06:00 | NUR ---
DECREASE LITER FLOW TO 3, PT CONT TO TAKE MED NEB OFF BEFORE FINISHED
[2020-04-02] MEDS: ACETAMINOPHEN 650 mg PER 20 mL UD GT PRN (06:41)
--- NOTE | 2020-04-02 07:43 | NUR ---
OPENING SHIFT NOTE Assumed care of patient, awake and alert. No S/S of distress/SOB or pain. Instructed on POC and to call for assist PRN, will continue to monitor for changes Q1hr and PRN. Patient in the lowest possible position with call light within reach. Will continue to monitor for complications.
--- NOTE | 2020-04-02 07:46 | NUR ---
Closing note endorsed care to day shift RN.
[2020-04-02 09:00] VITALS: BP 143/85
[2020-04-02 09:34] VITALS: BP 154/93
[2020-04-02] MEDS: methylPREDNISolone SOD SUCC 40 MG/ML VL IV SCH (10:13)
[2020-04-02] MEDS: cefTRIAXone 1GM/50ML D5W 50 ML IV SCH (10:18)
[2020-04-02] MEDS: MUPIROCIN 2% OINT 15gm or 22gm EACHNOSTRI SCH (10:19)
[2020-04-02] MEDS: SODIUM CHLOR 0.9% PF (SALINE LOCK) 10ML VIAL/SYR IV SCH (10:19)
[2020-04-02] MEDS: FAMOTIDINE (10MG/ML) 2ML VL IV SCH (10:19)
[2020-04-02] MEDS: BRIVIACT 50 MG PO SCH (10:20)
[2020-04-02] MEDS: LACOSAMIDE 50 MG TAB PO SCH (10:21)
[2020-04-02] MEDS: amLODIPine BESYLATE 5 MG TAB PO SCH (10:24)
[2020-04-02] MEDS: METOPROLOL TARTRATE 25 MG TAB PO SCH (10:24)
--- NOTE | 2020-04-02 12:27 | NUR ---
At 930 am Call placed to [facility] provider services spoke with Meme she advises that oxygen order requested 03/26 was rec'd but no other D/C orders yet in system, since faxed late yesterday may not have been entered yet. Placed follow up call to [facility] spoke with Augusto, she advises that no requests for D/C orders Home PT, Oxygen and FWW rec'd only the IP auth request, confirmed request was faxed to correct fax # [phone]. Augusto recommends I refax and advises this can be arranged expeditiously. 2nd Request for Home PT, Oxygen and FWW faxed to [facility] auth # [phone], fax confirmation rec'd
[2020-04-02 13:00] VITALS: BP 155/97
--- NOTE | 2020-04-02 14:40 | NUR ---
Spoke with Dr Hager. Neuro clearance obtained.
--- NOTE | 2020-04-02 14:44 | NUR ---
Spoke with Ros at [facility], she advises HH is approved to [facility] auth# [id number], pt already has FWW and Home oxygen so auth for those will not be issued at this time.
--- NOTE | 2020-04-02 15:02 | NUR ---
assessment Patient is a 54 year old female who is alert and oriented. Patients cognitive abilities are intact. Prior to admission patient lived home with family and functioned independently. Per patient she will return home to her prior living arrangements post discharge and family will transport her home. Patients PCP is Dr Iqbal. Patient has a fww, cane and 02 for home use. Patient has consult for fww, 02, and home health. Maria Ines caseworker has set up home health with [facility]. Patient already has a fww and home 02. Patient is clear for discharge from ss consult. Will RN has been notified. I informed patient she has a right to speak to a delinquency prevention social worker regarding all care. I informed patient she has a right to participate in any and all discharge planning. Patient is aware of visiting hours on the hospital floor. I informed patient she has a right to privacy. Patient does not have a POA and advanced directive. I have offered patient information on POA and advanced directives. I informed the patient the advantages and benefits of having an Advanced Directive. Patient verbalized understanding and agreed to discharge plan. Addendum: 04/02/20 at 1505 by Eulalia PLUMMER Amended: Links added.
[2020-04-02 17:00] VITALS: BP 140/89
[2020-04-02 17:33] LABS: Basophils # (auto) 0 10 ^3/uL (0-0.2); Basophils % (auto) 0.3 % (0.0-2.0); Eosinophils # (auto) 0 10 ^3/uL (0-0.8); Hematocrit 52.5 % (36.0-46.0); Hemoglobin 17.3 g/dL (12.2-16.2); Lymphocytes % (auto) 19.4 % (10.0-50.0); Mean Corpuscular Hemoglobin 30.5 pg (28.0-32.0); Mean Corpuscular Volume 92.5 fL (80.0-100.0); Monocytes # (auto) 0.5 10 ^3/uL (0-1.3); Neutrophils # (auto) 3.7 10 ^3/uL (1.6-8.6); Neutrophils % (auto) 70.3 % (37.0-80.0); Platelet Count (auto) 307 10^3/uL (140-450); Red Blood Cells 5.67 10^6/uL (4.0-5.20); Red Cell Distribution Width 16.8 % (11.8-14.3); White Blood Cell 5.2 10^3/uL (4.4-10.8)
[2020-04-02 17:50] LABS: BUN/Creatinine Ratio 47.3; Calcium 8.9 mg/dL (8.5-10.1); Potassium 3.7 mmol/L (3.5-5.1)
--- NOTE | 2020-04-02 19:00 | NUR ---
PT LEFT WITHOUT TAKING HOME MEDICATIONS FROM IN-PATIENT PHARMACY. PHONED PT'S . STATED HE WOULD RETURN IN THE AM TO RETRIEVE THEM.
== END 2020-04-02 18:35 | disposition home health service (06) | DRG 812 ==
LOC: EDBD 12:22 → ER 12:22 → TELE 12:23 → ICU WEST 03-27 06:23 → DOU IN ICU 04-01 14:47 → TELE-WESTW 04-01 21:19
PROVIDERS: ADMIT Hospitalist; ATTEND Hospitalist
PROC: 02HV33Z Insertion of Infusion Device into Superior Vena Cava, Percutaneous Approach (ICD-10-PCS; principal; 2020-03-26)
PROC: 5A1955Z Respiratory Ventilation, Greater than 96 Consecutive Hours (ICD-10-PCS; 2020-03-26)
PROC: 0BH17EZ Insertion of Endotracheal Airway into Trachea, Via Natural or Artificial Opening (ICD-10-PCS; 2020-03-26)
PROC: 5A1935Z Respiratory Ventilation, Less than 24 Consecutive Hours (ICD-10-PCS; 2020-03-31)
PROC: 0BH17EZ Insertion of Endotracheal Airway into Trachea, Via Natural or Artificial Opening (ICD-10-PCS; 2020-03-31)
DX: T40.2X1A Poisoning by other opioids, accidental (unintentional), initial encounter (principal); J96.01 Acute respiratory failure with hypoxia; E87.1 Hypo-osmolality and hyponatremia; I67.1 Cerebral aneurysm, nonruptured; E44.1 Mild protein-calorie malnutrition; E87.6 Hypokalemia; F41.9 Anxiety disorder, unspecified; H57.02 Anisocoria; J44.9 Chronic obstructive pulmonary disease, unspecified; J96.12 Chronic respiratory failure with hypercapnia; Z68.23 Body mass index [BMI] 23.0-23.9, adult; F17.200 Nicotine dependence, unspecified, uncomplicated; F32.9 Major depressive disorder, single episode, unspecified; G40.201 Localization-related (focal) (partial) symptomatic epilepsy and epileptic syndromes with complex partial seizures, not intractable, with status epilepticus; G89.4 Chronic pain syndrome; H40.9 Unspecified glaucoma; Z20.828 Contact with and (suspected) exposure to other viral communicable diseases; I11.9 Hypertensive heart disease without heart failure; Z79.899 Other long term (current) drug therapy; Z82.0 Family history of epilepsy and other diseases of the nervous system; Z82.49 Family history of ischemic heart disease and other diseases of the circulatory system; Z82.5 Family history of asthma and other chronic lower respiratory diseases; Z83.3 Family history of diabetes mellitus; Z86.19 Personal history of other infectious and parasitic diseases; Z86.73 Personal history of transient ischemic attack (TIA), and cerebral infarction without residual deficits; Z91.5 Personal history of self-harm; Z98.891 History of uterine scar from previous surgery; Z88.0 Allergy status to penicillin; Z88.1 Allergy status to other antibiotic agents
CPT/HCPCS: 31500; 36415; 36569; 36600; 70450; 71045; 80048; 80053; 80307; 80320; 80329; 81001; 82805; 82962; 83735; 84484; 85007; 85025; 85027; 85610; 85730; 87070; 87081; 87205; 87426; 92610; 93005; 93306; 94002; 94003; 94640; 95819; 96365; 96367; 96375; 97116; 97163; 97530; 99291; C9254; G0378; J0696; J2250; J3490; J7060

== ENCOUNTER 2022-03-06 12:34 | Inpatient (IN) | payer MEDICAID ==
[~2022-03-06] VITALS: Ht 157.5 cm; Wt 58.2 kg
[~2022-03-06 12:34] MED LIST changes: -ALBU18; +ALBUAER3 IN; -AMLO5TAB15 PO; +ASCO100076 PO; +ASPI-498 PO; +ATOR40TA52 PO; -BACL10TA PO; +BACL20TA PO; +BECL40AE11 IN; +BRIV1TAB4 PO; +CHOL-17 PO; -DOXY-338 PO; +GABA-339 PO; -GLAT1INJ SC; +HYDR-4298 PO; -HYDR10TA26 PO; +HYDR25TA4 PO; +IBUP800T26 PO; -LACO100T PO; +LACO150T PO; +LISI40TA11 PO; -LORA-622 PO; +MIRT1TAB38 PO; +MONT-8 PO; +MULT-927 PO; -OXCA600T40 OR; -PRED-559 PO; +ZINC50TA7 PO
[2022-03-06] MEDS ORDERED: SODIUM CHLORIDE 0.9% 1,000 ML IVB ONE (13:30)
[2022-03-06] MEDS ORDERED: SODIUM CHLORIDE 0.9% 1,000 ML IV ONE (13:30)
[2022-03-06 13:58] LABS: Basophils # (auto) 0.1 10 ^3/uL (0-0.2); Eosinophils # (auto) 0 10 ^3/uL (0-0.8); Eosinophils % (auto) 0.6 % (0.0-7.0); Hematocrit 42.8 % (36.0-46.0); Hemoglobin 13.8 g/dL (12.2-16.2); Lymphocytes # (auto) 1.1 10 ^3/uL (0.4-5.4); Lymphocytes % (auto) 21.8 % (10.0-50.0); Mean Corpuscular Hemoglobin 32.5 pg (28.0-32.0); Mean Corpuscular Hgb Conc. 32.2 g/dL (32.0-36.0); Mean Corpuscular Volume 100.7 fL (80.0-100.0); Monocytes # (auto) 0.7 10 ^3/uL (0-1.3); Monocytes % (auto) 13.6 % (0.0-12.0); Neutrophils # (auto) 3.3 10 ^3/uL (1.6-8.6); Nucleated Red Blood Cells % 0.1 %; Red Blood Cells 4.25 10^6/uL (4.0-5.20); Red Cell Distribution Width 14.2 % (11.8-14.3); White Blood Cell 5.3 10^3/uL (4.4-10.8)
[2022-03-06 14:05] LABS: Albumin 3.1 g/dL (3.4-5.0); Calcium 8.3 mg/dL (8.5-10.1); Magnesium 2.3 mg/dL (1.6-2.6); Potassium 3.7 mmol/L (3.5-5.1)
[2022-03-06 14:08] LABS: BUN/Creatinine Ratio 8.4; Bilirubin, Total 0.3 mg/dL (0.2-1.0); Total Protein 6.4 g/dL (6.4-8.2)
[2022-03-06] MEDS ORDERED: cefTRIAXone 1GM/50ML D5W 50 ML IV ONE (15:30)
[2022-03-06] MEDS ORDERED: AZITHROMYCIN 500MG/ 250ML 250 ML IV ONE (15:30)
[2022-03-06] MEDS ORDERED: methylPREDNISolone SOD SUCC 125 MG/2 ML VL IV ONE (16:54)
[2022-03-06] MEDS ORDERED: DOCUSATE SOD 100 MG CAP PO PRN (17:00)
[2022-03-06] MEDS ORDERED: ACETAMINOPHEN 325 MG TAB PO PRN (17:00)
[2022-03-06] MEDS ORDERED: ONDANSETRON HCL 4 MG/2 ML VIAL IV PRN (17:00)
[2022-03-06] MEDS: methylPREDNISolone SOD SUCC 125 MG/2 ML VL IV SCH (17:17)
[2022-03-06] MEDS: ALBUTEROL SULF 2.5 MG/0.5ML(0.5%) NEB SOLN NEB SCH (18:16)
[2022-03-06] MEDS: IPRATROPIUM BROM 0.5 MG/2.5ML INH SOL NEB SCH (18:16)
[2022-03-06 21:52] VITALS: BP 124/71
[2022-03-06 23:19] VITALS: BP 124/71
[2022-03-07] MEDS: IPRATROPIUM BROM 0.5 MG/2.5ML INH SOL NEB SCH ×5 (00:25→23:00)
[2022-03-07] MEDS: ALBUTEROL SULF 2.5 MG/0.5ML(0.5%) NEB SOLN NEB SCH ×5 (00:25→23:00)
[2022-03-07] MEDS: SODIUM CHLOR 0.9% PF (SALINE LOCK) 10ML VIAL/SYR IV SCH ×4 (01:00→22:09)
[2022-03-07] MEDS: methylPREDNISolone SOD SUCC 125 MG/2 ML VL IV SCH ×3 (01:00→17:13)
[2022-03-07 04:35] VITALS: BP 168/90
[2022-03-07 08:00] VITALS: BP 118/80
[2022-03-07] MEDS: HYDROmorphone HCL 2 MG/ML VL/or syr IV PRN ×3 (10:14→20:52)
[2022-03-07] MEDS: levoFLOXacin 750MG 150 ML IV SCH (10:15)
[2022-03-07] MEDS: ENOXAPARIN SOD 40 MG/0.4 ML SYRINGE SC SCH (10:16)
[2022-03-07 16:44] VITALS: BP 168/90
[2022-03-07 20:00] VITALS: BP 172/91
[2022-03-07 22:00] VITALS: BP 172/91
[2022-03-08] MEDS: methylPREDNISolone SOD SUCC 125 MG/2 ML VL IV SCH (01:17)
[2022-03-08] MEDS: HYDROmorphone HCL 2 MG/ML VL/or syr IV PRN (01:41)
[2022-03-08 05:00] VITALS: BP 162/82
[2022-03-08] MEDS: SODIUM CHLOR 0.9% PF (SALINE LOCK) 10ML VIAL/SYR IV SCH ×3 (05:14→21:26)
[2022-03-08] MEDS: ALBUTEROL SULF 2.5 MG/0.5ML(0.5%) NEB SOLN NEB SCH ×4 (05:54→23:40)
[2022-03-08] MEDS: IPRATROPIUM BROM 0.5 MG/2.5ML INH SOL NEB SCH ×4 (05:54→23:40)
[2022-03-08 07:50] VITALS: BP 156/87
[2022-03-08] MEDS: levoFLOXacin 750MG 150 ML IV SCH (10:22)
[2022-03-08 10:23] VITALS: BP 156/87
[2022-03-08] MEDS: ENOXAPARIN SOD 40 MG/0.4 ML SYRINGE SC SCH (10:23)
[2022-03-08 13:46] VITALS: BP 172/96
[2022-03-08 16:57] VITALS: BP 148/84
[2022-03-08] MEDS ORDERED: hydrALAZINE HCL 20 MG/ML VL IV PRN (17:30)
[2022-03-08] MEDS ORDERED: hydrALAZINE HCL 20 MG/ML VL IV SCH (18:00)
[2022-03-08] MEDS: HYDROcodone-ACET 5/325MG TAB PO PRN ×2 (19:11→23:05)
[2022-03-08] MEDS: LISINOPRIL 20 MG TAB PO SCH (21:27)
[2022-03-08 22:00] VITALS: BP 159/90
[2022-03-09] VITALS (8 sets, daily range): BP systolic 128–157; BP diastolic 72–85
[2022-03-09] MEDS: HYDROcodone-ACET 5/325MG TAB PO PRN ×2 (02:58→15:46)
[2022-03-09] MEDS: SODIUM CHLOR 0.9% PF (SALINE LOCK) 10ML VIAL/SYR IV SCH ×2 (05:36→15:46)
[2022-03-09] MEDS: ALBUTEROL SULF 2.5 MG/0.5ML(0.5%) NEB SOLN NEB SCH ×2 (06:34→13:13)
[2022-03-09] MEDS: IPRATROPIUM BROM 0.5 MG/2.5ML INH SOL NEB SCH ×2 (06:34→13:13)
[2022-03-09] MEDS ORDERED: MONTELUKAST SODIUM 10 MG TAB PO SCH (10:00)
[2022-03-09] MEDS ORDERED: TIMOLOL MAL 0.5% OPTH(EYE) SOL 5ML EACHEYE SCH (10:00)
[2022-03-09] MEDS ORDERED: ASPirin-EC 81 mg tab PO SCH (10:00)
[2022-03-09] MEDS: LISINOPRIL 20 MG TAB PO SCH (10:27)
[2022-03-09] MEDS: ENOXAPARIN SOD 40 MG/0.4 ML SYRINGE SC SCH (10:27)
[2022-03-09] MEDS: levoFLOXacin 750MG 150 ML IV SCH (11:12)
== END 2022-03-09 17:40 | disposition home or self-care (01) | DRG 140 ==
LOC: EDBD 12:34 → ER 12:34 → TELE 16:54 → TELE-CENTR 20:42
PROVIDERS: ADMIT Internal Medicine; ATTEND Hospitalist
DX: J44.1 Chronic obstructive pulmonary disease with (acute) exacerbation (principal); J96.01 Acute respiratory failure with hypoxia; G93.41 Metabolic encephalopathy; E44.0 Moderate protein-calorie malnutrition; I24.9 Acute ischemic heart disease, unspecified; J98.11 Atelectasis; E11.9 Type 2 diabetes mellitus without complications; E78.5 Hyperlipidemia, unspecified; F41.9 Anxiety disorder, unspecified; Z20.822 Contact with and (suspected) exposure to COVID-19; I10 Essential (primary) hypertension; Z68.23 Body mass index [BMI] 23.0-23.9, adult; Z82.49 Family history of ischemic heart disease and other diseases of the circulatory system; Z83.3 Family history of diabetes mellitus; Z88.0 Allergy status to penicillin; Z88.8 Allergy status to other drugs, medicaments and biological substances
CPT/HCPCS: 36415; 36600; 70450; 71045; 80053; 82805; 83605; 83735; 83880; 84443; 84484; 85025; 85379; 85652; 86141; 87040; 93005; 93306; 94640; 96361; 96365; 96367; G0378; J0696; J1956; J7060